=== PATIENT | male | born 1940 | race Caucasian/White ===

== ENCOUNTER → 2018-07-05 | Outpatient (CLI) | payer MEDICARE ==
[~2018-07-05] MED LIST: ADULT LOW DOSE81 MG PO; AMLODIPINE BESYL5 MG; ASPIRIN EC325 M1 PO; ASPIRIN325 PO; CALCIUM 600 +1 EAC1 PO; CARAFATE 1 GM TA1 GM PO; CARDIZEM LA240 M1 PO; CARTIA XT180 M1 PO; CARVEDILOL3.125 MG PO; CO Q-1010 MG PO; COLACE100 MG PO; COQ-10100 MG PO; CRESTOR20 MG PO; DAILY GARLIC O400 MG PO; FLAX OIL1000 MG PO; FLAX SEED OIL1000 MG PO; FLOMAX0.4 MG PO; FOLIC ACID 40400 MC1 PO; Flaxseed Oil PO; GARLIC OIL1 EAC1 PO; GARLIC OIL1 EACH PO; HYDROCHLOROTHIA25 M1 PO; K-DUR 20 MEQ T20 MEQ PO; NITROSTAT0.4 MG SL; OXYCODONE HCL 55 MG PO; PLAVIX 75 MG TA75 MG PO; POTASSIUM SUPPLEMENT PO; POTASSIUM20; PREDNISONE 20 M20 M1 PO; PROVENTIL HFA6.7 G1 INH; RANEXA1000 MG PO; SYMBICORT80 MCG/4.1 INH; TRIAMTERENE-HC1 EAC1 PO; VENTOLIN HFA INH8 GM IH; VITAMIN D1000 UNI1 PO; VITAMIN D35000 UNI1 PO; VITCB500GO PO; Vitamin C PO; XANAX 0.5 MG0.5 M1 PO; ZETIA10 MG PO; ZPAK PO
== END ==
LOC: M.RAD 12:36
DX: M75.101 Unspecified rotator cuff tear or rupture of right shoulder, not specified as traumatic (principal); M19.011 Primary osteoarthritis, right shoulder; I10 Essential (primary) hypertension; I25.10 Atherosclerotic heart disease of native coronary artery without angina pectoris; E78.5 Hyperlipidemia, unspecified; Z95.1 Presence of aortocoronary bypass graft

== ENCOUNTER → 2018-11-08 | Outpatient (CLI) | payer MEDICARE | LOC: M.ULTRA 10-30 07:33 → M.MRI 07:02 | DX: M47.26 Other spondylosis with radiculopathy, lumbar region (principal); M47.812 Spondylosis without myelopathy or radiculopathy, cervical region; M47.817 Spondylosis without myelopathy or radiculopathy, lumbosacral region; M51.16 Intervertebral disc disorders with radiculopathy, lumbar region; I73.9 Peripheral vascular disease, unspecified; M48.07 Spinal stenosis, lumbosacral region; M48.02 Spinal stenosis, cervical region; M43.13 Spondylolisthesis, cervicothoracic region; M50.23 Other cervical disc displacement, cervicothoracic region; I10 Essential (primary) hypertension; E78.2 Mixed hyperlipidemia; G62.9 Polyneuropathy, unspecified; G89.29 Other chronic pain; M25.511 Pain in right shoulder; M25.512 Pain in left shoulder; Z87.891 Personal history of nicotine dependence ==

== ENCOUNTER 2018-12-26 09:56 | Emergency (ER) | payer MEDICARE ==
[~2018-12-26] VITALS: Ht 172.7 cm; Wt 106.6 kg
[2018-12-26] MEDS ORDERED: EFFEXOR XR37.5 MG PO (10:07)
[2018-12-26 10:38] LABS: ABSOLUTE LYMPHOCYTES 1.3 thou/uL (0.8-5.3); ABSOLUTE MONOCYTES 0.9 thou/uL (0.0-1.2); ABSOLUTE NEUTROPHILS 8.2 thou/uL (1.6-8.1); BASOPHILS 0.4 %; EOSINOPHILS 0.3 %; HEMATOCRIT 45.8 % (42.0-52.0); HEMOGLOBIN 15.5 gm/dL (14.0-18.0); LYMPHOCYTES 12.1 %; MCH 30.7 pg (26.0-34.0); MCHC 33.9 g/dL (28.0-37.0); MCV 90.4 fL (80.0-100.0); MONOCYTES 8.6 %; MPV 9.2 fl. (7.2-11.1); NUCLEATED RBCS 0 /100WBC; PLATELET COUNT* 239 thou/uL (150-400); POLYS 78.6 %; RBC 5.06 mil/uL (4.50-6.00); RDW-CV 13.7 % (10.5-14.5); WBC 10.4 thou/uL (4.0-11.0)
[2018-12-26 10:49] LABS: ANION GAP 9 mmol/L (7-16); BUN 19 mg/dL (7-18); CALCIUM 8.9 mg/dL (8.5-10.1); CHLORIDE 102 mmol/L (98-107); CO2 26 mmol/L (21-32); CREATININE 1.2 mg/dL (0.6-1.3); GLUCOSE 114 mg/dL (70-99); POTASSIUM 3.7 mmol/L (3.5-5.1); SODIUM 137 mmol/L (136-145)
[2018-12-26 10:51] LABS: INR 1.1; PROTIME 11.2 Seconds (9.20-11.50)
[2018-12-26 10:56] LABS: ALBUMIN 3.5 g/dL (3.4-5.0); ALKALINE PHOSPHATASE 72 U/L (46-116); LIPASE 158 U/L (73-393); SGOT 25 U/L (15-37); SGPT 80 U/L (30-65); TOTAL BILIRUBIN 0.5 mg/dL (<0.1-1.0); TOTAL PROTEIN 6.9 g/dL (6.4-8.2); TROPONIN-I LEVEL <0.06 ng/mL (<0.06)
[2018-12-26] MEDS ORDERED: AMITRIPTYLINE H25 M2 PO (11:51)
[2018-12-26 12:09] VITALS: BP 148/70
--- NOTE | 2018-12-26 16:32 | EKG ---
[place] [address] ELECTROCARDIOGRAM REPORT Name: JARROD DONALD Room: [facility]#: [id number] Admission: 12/26/18 Attend Phys: Discharge: 12/26/18 Date of : 36 Report #: [id number] THIS REPORT FOR: //name// [facility] ED Test Date: 2018-12-26 Test Time: 10:00:41 Pat Name: JARROD DONALD Department: Room: Gender: M Vamp Throater: Dano NAVARRETE : 1940 Requested By: Indigo Hinton Order Number: [id number] MD: Kelby Kuo Measurements Intervals [place] Rate: 56 P: 25 AR: 202 QRS: -8 QRSD: 106 T: 84 QT: 415 QTc: 401 Interpretive Statements Sinus rhythm Early transition Atrial premature complex Compared to ECG 05/27/2016 07:42:17 Atrial premature complex(es) now present Electronically Signed On 12-26-2018 16:32:10 RN PEDIATRIC ICU by Kelby Kuo [email or web address] <ELECTRONICALLY SIGNED> By: Kelby Kuo MD, [facility] 12/26/18 1632 1000 1000 Kelby Kuo MD, FAC /EPI
== END 2018-12-26 12:15 | disposition home or self-care (01) ==
LOC: M.ERS 09:56
PROVIDERS: Personal Emergency Response Attendant
DX: G47.00 Insomnia, unspecified (principal); R07.89 Other chest pain; I25.10 Atherosclerotic heart disease of native coronary artery without angina pectoris; I10 Essential (primary) hypertension; F32.9 Major depressive disorder, single episode, unspecified; Z95.5 Presence of coronary angioplasty implant and graft; Z96.641 Presence of right artificial hip joint; Z95.1 Presence of aortocoronary bypass graft; Z88.8 Allergy status to other drugs, medicaments and biological substances; Z87.891 Personal history of nicotine dependence

== ENCOUNTER → 2019-02-27 | Outpatient (CLI) | payer MEDICARE ==
[~2019-02-27] MED LIST changes: +AMITRIPTYLINE H25 M2 PO; +EFFEXOR XR37.5 MG PO
== END ==
LOC: M.RAD 11:16
DX: M19.071 Primary osteoarthritis, right ankle and foot (principal); M19.072 Primary osteoarthritis, left ankle and foot; G89.29 Other chronic pain; Z88.8 Allergy status to other drugs, medicaments and biological substances

== ENCOUNTER → 2019-06-20 | Outpatient (CLI) | payer MEDICARE | LOC: M.RAD 16:32 | DX: I11.9 Hypertensive heart disease without heart failure (principal); I25.10 Atherosclerotic heart disease of native coronary artery without angina pectoris; I10 Essential (primary) hypertension; E78.2 Mixed hyperlipidemia; F33.1 Major depressive disorder, recurrent, moderate; Z88.8 Allergy status to other drugs, medicaments and biological substances; Z95.5 Presence of coronary angioplasty implant and graft ==

== ENCOUNTER → 2019-07-11 | Outpatient (CLI) | payer MEDICARE ==
[~2019-07-11] MED LIST changes: +CARTIA XT120 M1; -CARTIA XT180 M1 PO; +CLONAZEPAM 0.50.5 M1; +COQ-10100 MG; -COQ-10100 MG PO; +FOLIC ACID0.4 MG; +GINKGO BILOBA40 M1; +NEXIUM20 MG; +PANAX GINSENG; +WELLBUTRIN XL150 MG
== END ==
LOC: M.MRI 07-10 16:30
DX: M47.812 Spondylosis without myelopathy or radiculopathy, cervical region (principal); M48.02 Spinal stenosis, cervical region; I10 Essential (primary) hypertension; G62.9 Polyneuropathy, unspecified; E78.2 Mixed hyperlipidemia; F33.1 Major depressive disorder, recurrent, moderate

== ENCOUNTER 2019-07-17 10:37 | Inpatient (IN) | payer MEDICARE ==
[2019-07-17] VITALS (12 sets, daily range): BP systolic 118–145; BP diastolic 60–75
[~2019-07-17] VITALS: Ht 172.7 cm; Wt 104.8 kg
--- NOTE | ~2019-07-17 | H ---
[address] [address] HISTORY AND PHYSICAL Name: JARROD DONALD Room: [address]#: [id number] Admission: 07/17/19 Attend Phys: Kelby Kuo MD Discharge: 07/18/19 Date of : 36 Report #: [id number] THIS REPORT FOR: //name// Please refer to the History and Physical performed in the physician's office. By: 0815Medical Records Staff ALEXX /BALDEV
[~2019-07-17 10:37] MED LIST changes: -CARTIA XT120 M1; +CARTIA XT120 M1 PO; -CLONAZEPAM 0.50.5 M1; +CLONAZEPAM 0.50.5 M1 PO; -COQ-10100 MG; +COQ-10100 MG PO; -FOLIC ACID0.4 MG; +FOLIC ACID0.4 MG PO; -GINKGO BILOBA40 M1; +GINKGO BILOBA40 M1 PO; -NEXIUM20 MG; +NEXIUM20 MG PO; -WELLBUTRIN XL150 MG; +WELLBUTRIN XL150 MG PO
[2019-07-17 11:49] LABS: HEMATOCRIT 45.7 % (42.0-52.0); HEMOGLOBIN 15.3 gm/dL (14.0-18.0); MCH 30.8 pg (26.0-34.0); MCHC 33.5 g/dL (28.0-37.0); MPV 9.6 fl. (7.2-11.1); RBC 4.97 mil/uL (4.50-6.00); RDW-CV 13.9 % (10.5-14.5); WBC 6.5 thou/uL (4.0-11.0)
[2019-07-17 12:04] LABS: APTT 27.1 Seconds (25.0-31.3); INR 1.1; PROTIME 10.8 Seconds (9.20-11.50)
[2019-07-17 12:07] LABS: ANION GAP 8 mmol/L (7-16); BUN 22 mg/dL (7-18); CALCIUM 9.5 mg/dL (8.5-10.1); CHLORIDE 104 mmol/L (98-107); CO2 27 mmol/L (21-32); CREATININE 1.3 mg/dL (0.6-1.3); GLUCOSE 99 mg/dL (70-99); POTASSIUM 3.8 mmol/L (3.5-5.1); SODIUM 139 mmol/L (136-145)
[2019-07-17 12:12] LABS: ALBUMIN 3.6 g/dL (3.4-5.0); ALKALINE PHOSPHATASE 65 U/L (46-116); CHOLESTEROL 179 mg/dL (<200); HDL CHOLESTEROL 40 mg/dL (>40); LDL CHOLESTEROL 117 mg/dL (<100); SGOT 20 U/L (15-37); SGPT 23 U/L (30-65); TC:HDL 4.5 Ratio (Not establshd); TOTAL BILIRUBIN 0.5 mg/dL (<0.1-1.0); TRIGLYCERIDE 114 mg/dL (<150); VLDL 23 mg/dL (<40)
[2019-07-17 12:17] LABS: SERUM ASSESSMENT Clear
--- NOTE | 2019-07-17 16:24 | EKG ---
[place] [address] ELECTROCARDIOGRAM REPORT Name: JARROD DONALD Room: [address] ADM IN M.R.#: [id number] Admission: 07/17/19 Attend Phys: Kelby Kuo MD Discharge: Date of : 36 Report #: [id number] THIS REPORT FOR: //name// [facility] Test Date: 2019-07-17 Test Time: 11:36:04 Pat Name: JARROD DONALD Department: Room: [facility] Gender: M Sheet Folder: : 1940 Requested By: Kelby Kuo Order Number: [id number] Reading MD: Frank Gutiérrez Measurements Intervals [place] Rate: 54 P: 50 W[place]: 261 QRS: 20 QRSD: 111 T: 90 QT: 452 QTc: 429 Interpretive Statements Sinus rhythm Prolonged [place] interval Abnormal R-wave progression, early transition Compared to ECG 12/26/2018 10:00:41 First degree AV block now present Atrial premature complex(es) no longer present Electronically Signed On 07-17-2019 16:24:07 CDT by Frank Gutiérrez [email or web address] <ELECTRONICALLY SIGNED> By: Frank Gutiérrez MD, [facility] 07/17/19 1624 1136 1136 Frank Gutiérrez MD, [facility] /EPI
[2019-07-17] MEDS ORDERED: NEURONTIN 300300 M1 PO (21:18)
[2019-07-18 00:44] VITALS: BP 129/80
[2019-07-18 05:02] VITALS: BP 132/78
[2019-07-18 07:00] VITALS: BP 123/68
[2019-07-18 08:38] VITALS: BP 123/68
[2019-07-18] MEDS ORDERED: EFFIENT10 MG PO (08:57)
[2019-07-18] MEDS ORDERED: ASPIRIN325 PO (08:57)
--- NOTE | 2019-07-18 18:17 | EKG ---
[place] [address] ELECTROCARDIOGRAM REPORT Name: JARROD DONALD Room: [address] DIS IN M.R.#: [id number] Admission: 07/17/19 Attend Phys: Kelby Kuo MD Discharge: 07/18/19 Date of : 36 Report #: [id number] THIS REPORT FOR: //name// [facility] Test Date: 2019-07-18 Test Time: 08:10:29 Pat Name: JARROD DONALD Department: Room: [address] Gender: M Ad Trafficker: : 1940 Requested By: Kelby Kuo Order Number: [id number] Reading MD: Kelby Kuo Measurements Intervals [place] Rate: 67 P: 55 SD: 229 QRS: 19 QRSD: 118 T: 85 QT: 442 QTc: 467 Interpretive Statements Sinus rhythm Multiple ventricular premature complexes Prolonged [place] interval Probable left atrial enlargement Nonspecific intraventricular conduction delay Minimal ST elevation, inferior leads Compared to ECG 07/17/2019 11:36:04 Ventricular premature complex(es) now present Intraventricular conduction delay now present ST (T wave) deviation now present Electronically Signed On 07-18-2019 18:17:39 CDT by Kelby Kuo [email or web address] <ELECTRONICALLY SIGNED> By: Kelby Kuo MD, FACC 07/18/19 1817 9 9 Kelby Kuo MD, FAC /EPI
--- NOTE | 2019-07-20 17:08 | D ---
[address] [address] DISCHARGE SUMMARY Name: SHABANAAJRROD Dixon Room: [address]R.#: [id number] Admission: 07/17/19 Attend Phys: Kelby Kuo MD Discharge: 07/18/19 Date of : 38 Report #: [id number] THIS REPORT FOR: //name// CC: Luis Kuo DATE OF SERVICE: 07/18/2019 DISCHARGE DIAGNOSES: 1. Coronary artery disease. 2. Unstable angina. 3. Hypertension. 4. Dyslipidemia. 5. Peripheral neuropathy. PROCEDURES DURING THE HOSPITALIZATION: 1. Coronary angiography. 2. Left heart catheterization. 3. Percutaneous coronary intervention to the distal right coronary artery with 2 drug-eluting stents placed. HOSPITAL COURSE: The patient was brought to the cardiac catheterization lab for coronary angiography after a stress test showed evidence of inferolateral ischemia with preserved LV systolic function. The patient had been complaining of increasing fatigue, lower extremity weakness and dyspnea. He does have a history of previous coronary artery bypass grafting. He reports having four 5-vessel bypass surgeries remotely. His angiography prior to this hospitalization showed a remaining patent KC graft and patent saphenous vein graft to an obtuse marginal branch. On catheterization during this hospitalization, he was found to have critical stenosis of the distal right coronary artery that did not have a patent graft to. The patient underwent percutaneous coronary intervention with 2 drug-eluting stents placed to the distal right coronary artery without complication and good result. During an angiography, the patient was also noted to have significant proximal LAD disease, for which he will be returning to the hospital for a staged procedure. The KC graft went to a widely patent diagonal branch and the saphenous vein graft went to a widely patent obtuse marginal branch, both of which were totally occluded proximally. The remainder of his hospitalization was unremarkable. He is being discharged to home in stable condition. He will be on dual antiplatelet therapy consisting of aspirin 81 mg daily and Effient 10 mg daily. His discharge medications will therefore include Effient 10 mg daily, Maxzide 37.5/25 mg 1 daily, folate 1 mg daily, Zetia 10 mg daily, diltiazem CD 120 mg daily, bupropion 150 mg daily, aspirin 81 mg daily, Tylenol p.r.n., Nexium 40 mg daily, clonazepam 0.5 mg at bedtime, Colace 100 mg [place].i.[place] [address] DISCHARGE SUMMARY Name: JARROD DONALD Room: [address]#: [id number] Admission: 07/17/19 Attend Phys: Kelby Kuo MD Discharge: 07/18/19 Date of : 38 Report #: [id number] DISPOSITION: The patient will be contacted to follow up in the next 2-3 weeks for staged intervention. We will see the patient in the office in 2 months. <ELECTRONICALLY SIGNED> By: Kelby Kuo MD, FACC 07/20/19 1708 0905 0925Michael Pretty Kuo MD, FAC /nt
--- NOTE | 2019-07-21 12:02 | CARD ---
[address] [address] CARDIAC CATH REPORT Name: JARROD DONALD Room: [address]#: [id number] Admission: 07/17/19 Attend Phys: Kelby Kuo MD Discharge: 07/18/19 Date of : 38 Report #: [id number] THIS REPORT FOR: //name// APPROVED REPORT Study performed: 07/17/2019 11:35:25 Patient Details Patient Status: In-Patient Room #: The patient is a 79 year-old male Event Personnel Kelby Kuo Go Cart Mechanic, Graciela Roberts RN RN, Dhiraj Martinez AFTER SCHOOL TEACHER Monitor, Lokesh Baldwin AFTER SCHOOL TEACHER Scrub, Frank Gutiérrez Parts Remover, April Zacarias RTSaad Monitor Procedures Performed Art Access - R femoral artery* Left Heart Cath Coronaries, Bypass Grafts [id number] LHCCORCABG JUAN MIGUEL Place w/wo Plasty Single RCA 175777 Art Access - R femoral artery* Indication Dyspnea, Positive stress test Risk Factors Coronary Artery Disease Previous Procedures/Diagnoses Previous CABG Admission/Lab Medications/Medications given during procedure Midazolam (Versed) IV 2 mg, Fentanyl IV 50 mcg, Lidocaine Subcut 10 ml, Angiomax IV Bolus 16 ml, Angiomax IV gtt, Zofran (Ondansetron) IV 4 mg, Effient PO 60 mg, Aspirin PO 162 mg 37.1 ml/hr Procedure Narrative The patient was brought electively to the Cardiac Catheterization Laboratory and was prepped and draped in a sterile manner. The right femoral was infiltrated with 1% Lidocaine subcutaneous anesthesia. A 6Fr X 35cm Sheath sheath was inserted into the right femoral artery. Coronary angiography was performed using coronary diagnostic catheters. The right coronary system was accessed and visualized with a 6F JR4 catheter. The left coronary system was accessed and visualized with a 6F JL4 catheter. The [place] [address] CARDIAC CATH REPORT Name: JARROD DONALD Room: [address]#: [id number] Admission: 07/17/19 Attend Phys: Kelby Kuo MD Discharge: 07/18/19 Date of : 38 Report #: [id number] and visualized with a 6F JR4 catheter. The patient tolerated the procedure well and there were no complications associated with the procedure. Intraoperative Conscious Sedation Sedation start time: 11:57 Case end Time: 13:04 Fentanyl 50 mcg Versed 2 mg Fluoro Time: 16.4 minutes Dose: DAP 090293 cGycm2 3066 mGy Contrast Type and Amount: Omnipaque 210 ml Coronary Angiography The patient's coronary anatomy is right dominant. [place] Artery Percent Stenosis A KC graft to the second diagonal branch is widely patent with good distal anastomoses. A saphenous vein graft to the first obtuse marginal branch is widely patent with good distal anastomoses. Other saphenous vein grafts noted historically to be occluded. Diagnostic Cath Left Main Normal and bifurcates into the left descending and circumflex coronary arteries. LAD 80% calcified narrowing noted just after the takeoff of the first diagonal branch. Diagonal 1 Free of significant disease. Diagonal 2 Totally occluded at the ostium and filled by a KC graft. Circumflex Free of significant disease in the proximal mid and distal portion. OM1 Totally occluded at the takeoff. Filled by saphenous vein graft. OM2 Moderate branch vessel that is free of significant disease. Right Coronary Diffusely plaqued throughout with 20% narrowing proximally, 50% narrowing distally and tandem 70 and 80% narrowings distally. Vessels calcified. R PDA Free of significant disease. RPLV Free of significant disease. Left Ventriculography Left [place]entriculography [place] [address] CARDIAC CATH REPORT Name: SHABANAJARROD Zack Room: [address]#: [id number] Admission: 07/17/19 Attend Phys: Kelby Kuo MD Discharge: 07/18/19 Date of : 38 Report #: [id number] Hemodynamics The aortic pressure is 112/61 mmHg with a mean of 56 mmHg. The left ventricular pressure is 146/11 mmHg with a mean of mmHg. The left ventricular end diastolic pressure is 24 mmHg. PCI Technique Lesion Anticoagulation was achieved with Angiomax. Patient was preloaded with Angiomax IV 16 ml. Percutaneous coronary intervention was performed on the distal right coronary artery. The lesion stenosis prior to intervention was 75% with RONA 0 flow. A 6FR JL 4.0 Guide Catheter was used to engage the RCA ostium. A BMW 190cm Interventional Guidewire was used to cross the lesion. BALLOON DILATION A Balloon catheter Trek RX 2.25 X 12 was inserted and inflated up to 14atm for 6seconds. Additional Inflation: 17atm for 13seconds. Additional Inflation: 18atm for 16seconds. 2ND BALLOON: TREK RX 2.5 X 12MM. 12 LUIS, 10 SECONDS. 18 LUIS 9 SECONDS. 22 LUIS, 13 SECONDS. 3RD BALLOON: NC TREK RX 2.75 X 8MM. 17 LUIS, 16 SECONDS. STENT DEPLOYMENT A drug-eluting stent Sims RX Stent 2.22M02ix was inserted and inflated up to 12atm for 15seconds. Additional Inflation: 16atm for 15seconds. 2ND DRUG-ELUTING STENT: FLO RX STENT 2.75 X 8MM. 14 LUIS, 12 SECONDS. 17 LUIS, 11 SECONDS. 18 LUIS, 9 SECONDS. Final angiography reveals 10, 0 % stenosis with RONA 3 flow. Conclusion 1. Significant three-vessel coronary artery disease as outlined above. 2. Significant stenoses noted in the distal right coronary artery and mid left anterior descending coronary artery. 3. Moderately elevated left ventricular end-diastolic pressure. 4. Patent KC graft to the second diagonal branch. 5. Patent saphenous vein graft to the first obtuse marginal branch. 6. Successful percutaneous coronary intervention with deployment of sequential drug-eluting stents at the sites of tandem 70 and 80% distal right coronary stenosis with 10 and 0% residual narrowing following stent deployment and RONA-3 flow the distal vessel Recommendations Cardiac Risk Reduction Program [address] [address] CARDIAC CATH REPORT Name: JARROD DONALD [facility] [id number] Admission: 07/17/19 Attend Phys: Kelby Kuo MD Discharge: 07/18/19 Date of : 38 Report #: [id number] 1. Continue aggressive risk factor modification. 2. Percutaneous coronary intervention to the distal right coronary artery and mid left anterior descending coronary artery. Medications Administered Aspirin (any) Clopidogrel Diagnostic Cath Approved by: Kelby Kuo MD Date/Time: 07/21/2019 12:00:58 <ELECTRONICALLY SIGNED> By: Frank Gutiérrez MD, [facility] 07/21/19 1202 120 1202Frank Gutiérrez MD, [facility] /INF
== END 2019-07-18 11:52 | disposition home or self-care (01) | DRG 246 ==
LOC: M.CL 10:37 → M.TBA-CV 14:59 → M.2W 14:59
PROVIDERS: ADMIT Internal Medicine Cardiovascular Disease
DX: I25.110 Atherosclerotic heart disease of native coronary artery with unstable angina pectoris (principal); I50.33 Acute on chronic diastolic (congestive) heart failure; I11.0 Hypertensive heart disease with heart failure; G62.9 Polyneuropathy, unspecified; E78.2 Mixed hyperlipidemia; Z95.1 Presence of aortocoronary bypass graft; Z87.81 Personal history of (healed) traumatic fracture; Z87.891 Personal history of nicotine dependence; Z79.899 Other long term (current) drug therapy; Z88.8 Allergy status to other drugs, medicaments and biological substances; Z82.49 Family history of ischemic heart disease and other diseases of the circulatory system

== ENCOUNTER 2019-08-07 10:11 | Observation (INO) | payer MEDICARE ==
[2019-08-07] VITALS (15 sets, daily range): BP systolic 115–145; BP diastolic 68–84
[~2019-08-07] VITALS: Ht 175.3 cm; Wt 105.7 kg
--- NOTE | ~2019-08-07 | H ---
[address] [address] HISTORY AND PHYSICAL Name: JARROD DONALD Room: [address] Deloris Freeman#: [id number] Admission: 08/07/19 Attend Phys: Kelby Kuo MD Discharge: 08/08/19 Date of : 38 Report #: [id number] THIS REPORT FOR: //name// Please refer to the History and Physical performed in the physician's office. By: [facility]2Medical Records Staff ALEXX /BALDEV
[~2019-08-07 10:11] MED LIST changes: +EFFIENT10 MG PO; +NEURONTIN 300300 M1 PO; -PANAX GINSENG; +PANAX GINSENG PO
[2019-08-07] MEDS ORDERED: ASPIR 8181 MG PO (10:39)
[2019-08-07 11:22] LABS: HEMATOCRIT 44.9 % (42.0-52.0); HEMOGLOBIN 15.4 gm/dL (14.0-18.0); MCH 30.9 pg (26.0-34.0); MCHC 34.4 g/dL (28.0-37.0); MPV 9.2 fl. (7.2-11.1); RBC 4.99 mil/uL (4.50-6.00); WBC 6.8 thou/uL (4.0-11.0)
[2019-08-07 11:27] LABS: ANION GAP 9 mmol/L (7-16); BUN 15 mg/dL (7-18); CALCIUM 9.3 mg/dL (8.5-10.1); CHLORIDE 104 mmol/L (98-107); CO2 25 mmol/L (21-32); CREATININE 1.2 mg/dL (0.6-1.3); GLUCOSE 97 mg/dL (70-99); POTASSIUM 4.1 mmol/L (3.5-5.1); SODIUM 138 mmol/L (136-145)
[2019-08-07 11:29] LABS: APTT 27.5 Seconds (25.0-31.3); PROTIME 10.7 Seconds (9.20-11.50)
[2019-08-07 11:33] LABS: ALBUMIN 3.7 g/dL (3.4-5.0); ALKALINE PHOSPHATASE 70 U/L (46-116); CHOLESTEROL 170 mg/dL (<200); HDL CHOLESTEROL 38 mg/dL (>40); LDL CHOLESTEROL 105 mg/dL (<100); SGOT 16 U/L (15-37); SGPT 25 U/L (30-65); TC:HDL 4.5 Ratio (Not establshd); TOTAL BILIRUBIN 0.5 mg/dL (<0.1-1.0); TRIGLYCERIDE 136 mg/dL (<150); VLDL 27 mg/dL (<40)
[2019-08-07 11:59] LABS: SERUM ASSESSMENT Clear
[2019-08-07 14:56] LABS: CK-MB MASS 1.4 ng/mL (<0.5-3.6); TROPONIN-I LEVEL <0.06 ng/mL (<0.06)
--- NOTE | 2019-08-07 16:57 | EKG ---
[place] [address] ELECTROCARDIOGRAM REPORT Name: JARROD DONALD Room: [address] M.R.#: [id number] Admission: 08/07/19 Attend Phys: Kelby Kuo MD Discharge: Date of : 38 Report #: [id number] THIS REPORT FOR: //name// [facility] Test Date: 2019-08-07 Test Time: 11:37:35 Pat Name: JARROD DONALD Department: Room: [facility] Gender: M Credit Card Specialist: : 1940 Requested By: Kelby Kuo Order Number: [id number] Jay MD: Kelby Kuo Measurements Intervals [place] Rate: 55 P: 60 ID: 241 QRS: 11 QRSD: 107 T: 90 QT: 451 QTc: 432 Interpretive Statements Sinus rhythm Prolonged [place] interval Abnormal R-wave progression, early transition Compared to ECG 07/18/2019 08:10:29 Ventricular premature complex(es) no longer present Intraventricular conduction delay no longer present ST (T wave) deviation no longer present Electronically Signed On 08-07-2019 16:57:18 CDT by Kelby Kuo [email or web address] <ELECTRONICALLY SIGNED> By: Kelby Kuo MD, FACC 08/07/19 1657 1137 1137 Kelby Kuo MD, [facility] /EPI
--- NOTE | 2019-08-07 16:58 | EKG ---
[place] [address] ELECTROCARDIOGRAM REPORT Name: JARROD DONALD Room: [address] M.R.#: [id number] Admission: 08/07/19 Attend Phys: Kelby Kuo MD Discharge: Date of : 38 Report #: [id number] THIS REPORT FOR: //name// [facility] Test Date: 2019-08-07 Test Time: 14:25:01 Pat Name: JARROD DONALD Department: Room: [facility] Gender: M Subwarehouse Supervisor: : 1940 Requested By: Kelby Kuo Order Number: [id number] Reading MD: Kelby Kuo Measurements Intervals [place] Rate: 52 P: 47 [place]: 276 QRS: 12 QRSD: 109 T: 93 QT: 475 QTc: 442 Interpretive Statements Sinus rhythm Prolonged [place] interval Probable left atrial enlargement Abnormal R-wave progression, early transition Compared to ECG 07/18/2019 08:10:29 Ventricular premature complex(es) no longer present Intraventricular conduction delay no longer present ST (T wave) deviation no longer present Electronically Signed On 08-07-2019 16:57:51 CDT by Kelby Kuo [email or web address] <ELECTRONICALLY SIGNED> By: Kelby Kuo MD, FACC 08/07/19 1657 1425 1425 Kelby Kuo MD, FAC /EPI
--- NOTE | 2019-08-07 18:30 | NUR ---
ASSUMED PT CARE AT 1525 FROM AUDITING SPECIALIST AFTER STENT PLACEMENT IN LAD VIA RIGHT GROIN. GROIN INCISION AREA SOFT WITH NO S/S OF REDNESS OR IRRITATION. PT DENIES PAIN OR DISCOMFORT. POST CATH VITALS COMPLETED PER PROTOCOL. PT EDUCATED ET STATES UNDERSTANDING REGARDING REMAINING ON BACK FOR DESIGNATED TIME. PT STATED THIS WAS HIS 6TH STENT ET HE UNDERSTANDS. AT 1730 PT WAS ALLOWED TO GET UP FROM BED WITH ASSISTANCE OF THIS NURSE. PT DENIED ANY DISCOMFORT. INCISION SIGHT REMAINED INTACT WITH NO S/S OF IRRITATION. PT WAS UP IN CHAIR WITH DINNER. HOURLY ROUNDS COMPLETED ET DOCUMENTED. BS WITH PVC'S ON CARD MONITOR.
[2019-08-08] VITALS: BP 139/71
[2019-08-08 04:00] VITALS: BP 121/71
[2019-08-08 04:18] LABS: HEMATOCRIT 41.3 % (42.0-52.0); HEMOGLOBIN 13.9 gm/dL (14.0-18.0); MCH 30.4 pg (26.0-34.0); MCHC 33.6 g/dL (28.0-37.0); MCV 90.5 fL (80.0-100.0); MPV 8.9 fl. (7.2-11.1); RBC 4.57 mil/uL (4.50-6.00); RDW-CV 13.9 % (10.5-14.5); WBC 7.7 thou/uL (4.0-11.0)
--- NOTE | 2019-08-08 05:03 | NUR ---
PT SLEPT MOST OF SHIFT. ASSESSMENT DOCUMENTED. MEDS GIVEN PER E-JAN. IV PATENT. NO REPORTS OF PAIN. RIGHT GROIN SITE REMAINED C/D/I, NO SIGNS OF HEMATOMA. WILL CONTINUE WITH PLAN OF CARE.
[2019-08-08 05:07] LABS: ALBUMIN 3.2 g/dL (3.4-5.0); CALCIUM 8.8 mg/dL (8.5-10.1); CK-MB MASS 1.4 ng/mL (<0.5-3.6); CREATININE 1.2 mg/dL (0.6-1.3); POTASSIUM 3.9 mmol/L (3.5-5.1); TOTAL BILIRUBIN 0.6 mg/dL (<0.1-1.0); TROPONIN-I LEVEL 0.09 ng/mL (<0.06)
--- NOTE | 2019-08-08 07:20 | NUR ---
CHANGE OF SHIFT BEDSIDE REPORT GIVEN PATIENT SEEN AT BEDSIDE, IN BED RESTING ASSUMED PATIENT CARE
[2019-08-08 08:00] VITALS: BP 117/71
[2019-08-08 09:12] VITALS: BP 145/84
[2019-08-08 09:39] VITALS: BP 145/84
[2019-08-08 10:50] VITALS: BP 145/84
--- NOTE | 2019-08-08 11:19 | EKG ---
[place] [address] ELECTROCARDIOGRAM REPORT Name: JARROD DONALD Room: [address] M.R.#: [id number] Admission: 08/07/19 Attend Phys: Kelby Kuo MD Discharge: Date of : 38 Report #: [id number] THIS REPORT FOR: //name// [facility] Test Date: 2019-08-08 Test Time: 03:58:49 Pat Name: JARROD DONALD Department: Room: [facility] Gender: M Postbed Stitcher: J[place] : 1940 Requested By: Kelby Kuo Order Number: [id number] Jay MD: Luis Vasquez Measurements Intervals [place] Rate: 68 P: 65 NV: 238 QRS: 19 QRSD: 113 T: 85 QT: 423 QTc: 450 Interpretive Statements Sinus rhythm premature complexes, vent Prolonged [place] interval Incomplete right bundle branch block Compared to ECG 08/07/2019 14:25:01 pvc now present Electronically Signed On 08-08-2019 11:19:42 CDT by Luis Vasquez [email or web address] <ELECTRONICALLY SIGNED> By: uLis Vasquez MD, [facility] 08/08/19 1119 0358 0358 Luis Vasquez MD, [facility] /EPI
--- NOTE | 2019-08-08 11:40 | NUR ---
DISCHARGE TO HOME ALL DISCHARGE INSTRUCTIONS GIVEN, ACKNOWLEDGED, SIGNED COPIES GIVEN IV AND HEART MONITOR REMOVED PERSONAL BELONGINGS RETURNED ASSISTED OUT VIA WC TO WAITING CAR
--- NOTE | 2019-08-09 09:12 | D ---
[address] [address] DISCHARGE SUMMARY Name: JARROD DONALD Room: [address] Deloris Freeman#: [id number] Admission: 08/07/19 Attend Phys: Kelby Kuo MD Discharge: 08/08/19 Date of : 38 Report #: [id number] THIS REPORT FOR: //name// CC: Luis Kuo DISCHARGE DIAGNOSES: 1. Coronary artery disease with progressive/unstable angina. 2. Hypertension. 3. Mixed hyperlipidemia. 4. Peripheral neuropathy. PROCEDURES DURING THE HOSPITALIZATION: Percutaneous coronary intervention with drug-eluting stent placement to the proximal LAD. HOSPITAL COURSE: The patient was admitted electively through the cardiac catheterization lab for scheduled/staged intervention to the proximal left anterior descending coronary artery. The patient had a 3.0 x 18 mm drug-eluting stent placed to the proximal to mid left anterior descending coronary artery without complication. The patient tolerated the procedure well without complication. He was observed overnight and discharged home uneventfully. DISCHARGE MEDICATIONS: 1. Aspirin 325 mg daily. 2. Effient 10 mg daily. 3. Wellbutrin XL 150 mg daily. 4. Klonopin 0.5 mg daily as needed. 5. CoQ10 200 mg daily. 6. Diltiazem 120 mg daily. 7. Colace 100 mg. 8. Nexium 20 mg q.a.m. 9. Zetia 10 mg daily. 10. Folate 400 mcg daily. 11. Gabapentin 600 mg 3 times daily. 12. Maxzide 25 one tablet daily. He takes number of supplements as well. DISPOSITION: The patient has been asked to follow up with Cardiology office in 2-3 months following stent placement. <ELECTRONICALLY SIGNED> By: Kelby Kuo MD, FACC 08/09/19911 8 0938Micfredy Kuo MD, FACC /nt
--- NOTE | 2019-08-13 16:34 | CARD ---
[address] [address] CARDIAC CATH REPORT Name: JARROD DONALD Room: [address] Deloris Freeman#: [id number] Admission: 08/07/19 Attend Phys: Kelby Kuo MD Discharge: 08/08/19 Date of : 36 Report #: [id number] THIS REPORT FOR: //name// APPROVED REPORT Study performed: 08/07/2019 11:32:30 Patient Details The patient is a 79 year-old male Event Personnel Kelby Kuo Clinical Esthetician, Frank Gutiérrez Inspector Automatic Typewriter, Graciela Roberts RN Petal Shaper Hand, April Zacarias RTR Scrub, Katie Maria RN Monitor, Sarahy Bojorquez RTR Monitor Procedures Performed Art Access - R femoral artery* Atherectomy w/wo Plasty Sgl LAD [id number] ATHSINGLE JUAN MIGUEL Place w/wo Plasty Single LAD [id number] Hemostasis w/ Angioseal Indication Unstable angina Risk Factors Hypercholesterolemia, Hypertension Previous Procedures/Diagnoses Previous PCI Admission/Lab Medications/Medications given during procedure Angiomax bolus and infusion Procedure Narrative The patient was brought electively to the Cardiac Catheterization Laboratory and was prepped and draped in a sterile manner. The right femoral was infiltrated with 2% Lidocaine subcutaneous anesthesia. A 6fr Ultimum Sheath sheath was inserted into the right femoral artery. Coronary angiography was performed using coronary diagnostic catheters. The left coronary system was accessed and visualized with a 6FR LAUNCHER EBU 3.5 catheter. Closure device was deployed with a Fr Angioseal STS 6Fr. The patient tolerated the procedure well and there were no complications associated with the procedure. Intraoperative Conscious Sedation Sedation start time: 1158 Case end Time: [place] [address] CARDIAC CATH REPORT Name: JARROD DONALD [address] [id number] Admission: 08/07/19 Attend Phys: Kelby Kuo MD Discharge: 08/08/19 Date of : 36 Report #: [id number] 1305 Fentanyl 100 mcg Versed 3 mg Fluoro Time: 23.2 minutes Dose: DAP 367157 cGycm2 2251 mGy Contrast Type and Amount: Visipaque 235 ml Diagnostic Cath Left Main 0% narrowing LAD 90% calcified proximalmid vessel stenosis Circumflex Nondominant vessel with 50% narrowing Left Ventriculography Left Ventriculography was not performed. PCI Technique Lesion Anticoagulation was achieved with Angiomax Drip. Patient was preloaded with Angiomax IV 16 ml. Percutaneous coronary intervention was performed on the proximal/mid left anterior descending artery segment. The lesion stenosis prior to intervention was 90% with RONA 3 flow. A 6FR LAUNCHER EBU 3.5 Guide Catheter was used to engage the left ostium. A IG: BMW 190cm Interventional Guidewire was used to cross the lesion. BALLOON DILATION A Balloon catheter Trek RX 2.5 X 12 was inserted and inflated up to 12.00atm for 14seconds. Additional Inflation: 18.00atm for 30seconds. Angiosculpt PTCA 3.0 X 10mm inserted/ inflated to 10 yeni/ 15 sec and 14 yeni/ 20 sec STENT DEPLOYMENT A drug-eluting stent biotronik Orsiro 3.0 x 18 was inserted and inflated up to 12.00atm for 24seconds. Additional Inflation: 14.00atm for 19seconds. Final angiography reveals 0 % stenosis with RONA 3 flow. Conclusion #1 significant left anterior descending coronary artery disease with 90% calcified proximalmid vessel stenosis #2 successful atherotomy/atherectomy with deployment of a drug-eluting stent in the proximalmid LAD with 0% residual narrowing and RNOA-3 flow [place] [address] CARDIAC CATH REPORT Name: JARROD DONALD [address] [id number] Admission: 08/07/19 Attend Phys: Kelby Kuo MD Discharge: 08/08/19 Date of : 36 Report #: [id number] Recommendations Cardiac Risk Reduction Program Aggressive Medical Therapy Medications Administered Aspirin (any) Prasugrel Diagnostic Cath Approved by: Kelby Kuo MD Date/Time: 08/13/2019 16:31:10 <ELECTRONICALLY SIGNED> By: Frank Gutiérrez MD, [facility] 08/13/19 1633 1633 1633Frank Gutiérrez MD, [facility] /INF
== END 2019-08-08 11:45 | disposition home or self-care (01) ==
LOC: M.CL 10:11 → M.TBA-CV 13:15 → M.2W 15:24
PROVIDERS: ADMIT Internal Medicine Cardiovascular Disease
DX: I25.10 Atherosclerotic heart disease of native coronary artery without angina pectoris (principal); E78.00 Pure hypercholesterolemia, unspecified; I10 Essential (primary) hypertension; E78.2 Mixed hyperlipidemia; G62.9 Polyneuropathy, unspecified; Z79.82 Long term (current) use of aspirin; Z79.899 Other long term (current) drug therapy

== ENCOUNTER 2019-08-30 19:21 | Observation (INO) | payer MEDICARE ==
[~2019-08-30] VITALS: Ht 172.7 cm; Wt 102.1 kg
[~2019-08-30 19:21] MED LIST changes: +ASPIR 8181 MG PO
[2019-08-30 19:29] VITALS: BP 136/67
[2019-08-30 19:38] LABS: ABSOLUTE EOSINOPHILS 0.1 thou/uL (0.0-0.7); ABSOLUTE LYMPHOCYTES 1.4 thou/uL (0.8-5.3); ABSOLUTE MONOCYTES 0.9 thou/uL (0.0-1.2); ABSOLUTE NEUTROPHILS 6.1 thou/uL (1.6-8.1); BASOPHILS 0.5 %; EOSINOPHILS 1.7 %; HEMOGLOBIN 15.2 gm/dL (14.0-18.0); LYMPHOCYTES 16.4 %; MCH 31.1 pg (26.0-34.0); MCHC 34.5 g/dL (28.0-37.0); MCV 90.1 fL (80.0-100.0); MONOCYTES 10.4 %; MPV 8.6 fl. (7.2-11.1); NUCLEATED RBCS 0 /100WBC; PLATELET COUNT* 261 thou/uL (150-400); RBC 4.88 mil/uL (4.50-6.00); WBC 8.7 thou/uL (4.0-11.0)
[2019-08-30 19:46] LABS: CALCIUM 9.5 mg/dL (8.5-10.1); CREATININE 1.4 mg/dL (0.6-1.3); INR 1.1; POTASSIUM 3.6 mmol/L (3.5-5.1); PROTIME 10.9 Seconds (9.20-11.50)
[2019-08-30 19:57] LABS: ALBUMIN 3.6 g/dL (3.4-5.0); TOTAL BILIRUBIN 0.5 mg/dL (<0.1-1.0)
--- NOTE | 2019-08-30 19:57 | NUR ---
1952 I SUBLINGUAL NITRO GIVEN ORDRED. 1955 PT STATED WAS PAIN FREE.
[2019-08-30 21:00] VITALS: BP 136/67
[2019-08-31] VITALS: BP 139/72
[2019-08-31 04:00] VITALS: BP 141/75
[2019-08-31 07:00] VITALS: BP 126/69
[2019-08-31 08:45] LABS: HEMATOCRIT 42.2 % (42.0-52.0); HEMOGLOBIN 14.4 gm/dL (14.0-18.0); MCH 30.9 pg (26.0-34.0); MCV 90.9 fL (80.0-100.0); MPV 8.6 fl. (7.2-11.1); RBC 4.64 mil/uL (4.50-6.00); WBC 7.1 thou/uL (4.0-11.0)
[2019-08-31 08:49] LABS: CALCIUM 9.5 mg/dL (8.5-10.1); CREATININE 1.4 mg/dL (0.6-1.3); POTASSIUM 3.5 mmol/L (3.5-5.1)
[2019-08-31] MEDS ORDERED: NITROGLYCERIN0.4 MG SUBLING (11:55)
[2019-08-31] MEDS ORDERED: IMDUR 30 MG TAB30 M1 PO (11:55)
[2019-08-31 12:06] VITALS: BP 113/57
--- NOTE | 2019-08-31 12:33 | EKG ---
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1940 Requested By: Galo Oneill Order Number: [id number] MD: Miguel Ching Measurements Intervals [place] Rate: 55 P: 68 [place]: 217 QRS: 31 QRSD: 109 T: 78 QT: 429 QTc: 411 Interpretive Statements Sinus rhythm Borderline prolonged [place] interval Probable left atrial enlargement RSR' in V1 or V2, right VCD or RVH Baseline wander in lead(s) I,III,aVL,V2 Compared to ECG 08/08/2019 03:58:49 Right ventricular hypertrophy now present RSR' in V1 or V2 now present Incomplete right bundle-branch block no longer present Electronically Signed On 08-31-2019 12:33:45 CDT by Miguel Ching [email or web address] <ELECTRONICALLY SIGNED> By: Svitlana Ching MD, FACKyle 08/31/19 1233 25 25 Svitlana Ching MD, [facility] /EPI
[2019-08-31] MEDS ORDERED: ACETAMINOPHEN325 M1 PO (12:43)
[2019-08-31 12:45] VITALS: BP 113/57
--- NOTE | 2019-08-31 13:30 | 2DMMODE ---
[place] [address] 2 D/M-MODE ECHOCARDIOGRAM Name: JARROD DONALD Room: [address] Deloris Freeman#: [id number] Admission: 08/30/19 Attend Phys: Man Acharya Discharge: Date of : 36 Date of Service: 08/31/19 1330 Report #: [id number] THIS REPORT FOR: //name// APPROVED REPORT Study performed: 08/31/2019 12:19:55 EXAM: Comprehensive 2D, Doppler, and color-flow Echocardiogram Patient Location: In-Patient Room #: [facility] Status: routine BSA: 2.15 HR: 60 bpm BP: 126/69 mmHg Rhythm: NSR Other Information Study Quality: Good Indications CAD Chest Pain 2D Dimensions IVSd: 12.24 (7-11mm) LVOT Diam: 21.06 (18-24mm) LVDd: 37.72 mm PWd: 11.79 (7-11mm) Ascending Ao: 38.78 (22-36mm) LVDs: 29.31 (25-40mm) Aortic Root: 41.36 mm Volumes Left Atrial Volume (Systole) LA ESV Index: 35.40 mL/m2 Aortic Valve AoV Peak Wilberto.: 1.62 m/s AO Peak Gr.: 10.53 mmHg LVOT Max P.65 mmHg AO Mean Gr.: 5.70 mmHg LVOT Mean P.45 mmHg LVOT Max V: 1.08 m/s AO V2 VTI: 30.39 cm LVOT Mean V: 0.73 m/s REMIGIO (VTI): 2.87 cm2 LVOT V1 VTI: 25.03 cm Mitral Valve MV Mean Gr.: 2.76 mmHg E/A Ratio: 0.58 MV Decel. Time: 642.25 [place] [address] 2 D/M-MODE ECHOCARDIOGRAM Name: JARROD DONALD Room: [address] MVictorinoRVictorino#: [id number] Admission: 08/30/19 Attend Phys: Man Acharya Discharge: Date of : 36 Date of Service: 08/31/19 1330 Report #: [id number] MV E Max Wilberto.: 0.73 m/s MV PHT: 186.25 ms MVA (PHT): 1.18 cm2 TDI E/Lateral E': 9.13 E/Medial E': 12.17 Medial E' Wilberto.: 0.06 m/s Lateral E' Wilberto.: 0.08 m/s Pulmonary Valve PV Peak Wilberto.: 0.71 m/s PV Peak Gr.: 1.99 mmHg Tricuspid Valve RAP Estimate: 5.00 mmHg TR Peak Gr.: 13.27 mmHg RVSP: 18.00 mmHg PA Pressure: 18.00 mmHg Left Ventricle The left ventricle is normal size. There is normal LV segmental wall motion. Mild concentric left ventricular hypertrophy. Left ventricular systolic function is normal. LVEF is 55-60%. Grade I - abnormal relaxation pattern. Right Ventricle The right ventricle is normal size. The right ventricular systolic function is normal. Atria Left atrium is mildly dilated. The right atrium size is normal. Aortic Valve Aortic valve leaflets are moderately thickened. No aortic regurgitation is present. There is no aortic valvular stenosis. Mitral Valve Moderate mitral annular calcification. There is no mitral valve regurgitation noted. Moderate mitral stenosis. Tricuspid Valve The tricuspid valve is normal in structure. Trace tricuspid regurgitation. Pulmonic Valve The pulmonary valve is normal in structure. [place] [address] 2 D/M-MODE ECHOCARDIOGRAM Name: JARROD DONALD Room: [address]#: [id number] Admission: 08/30/19 Attend Phys: Man Acharya Discharge: Date of : 36 Date of Service: 08/31/19 1330 Report #: [id number] regurgitation. Great Vessels The aortic root is normal in size. IVC is normal in size and collapses >50% with inspiration. Pericardium There is no pericardial effusion. <Conclusion> The left ventricle is normal size. Mild concentric left ventricular hypertrophy. Left ventricular systolic function is normal. LVEF is 55-60%. Grade I - abnormal relaxation pattern. Left atrium is mildly dilated. Aortic valve leaflets are moderately thickened. There is no aortic valvular stenosis. Moderate mitral annular calcification. Moderate mitral stenosis. Trace tricuspid regurgitation. Trace pulmonic regurgitation. IVC is normal in size and collapses >50% with inspiration. <ELECTRONICALLY SIGNED> By: Kelby Kuo MD, FACC 08/31/19 1330 29 29 Kelby Kuo MD, FACC /INF
--- NOTE | 2019-09-01 14:37 | CON ---
[address] [address] CONSULTATION Name: JARROD DONALD Room: [address] Deloris Freeman#: [id number] Admission: 08/30/19 Attend Phys: Leonila Zazueta Discharge: 08/31/19 Date of : 36 Report #: [id number] THIS REPORT FOR: //name// CC: Luis Acharya DATE OF SERVICE: 08/31/2019 CARDIOLOGY CONSULTATION INDICATION: Chest pain. HISTORY OF PRESENT ILLNESS: The patient is an 79-year-old gentleman well known to myself. He has a history of coronary artery disease with remote coronary artery bypass grafting. Recent catheterization showed a patent KC graft to a diagonal and patent saphenous vein graft to an obtuse marginal branch. He underwent percutaneous coronary intervention with drug-eluting stent placed to the distal right coronary artery. Approximately a month later, he had a drug-eluting stent placed to the proximal left anterior descending coronary artery. He does have some residual apical LAD disease that was not felt to be in need of intervention. The patient was admitted with several days' worth of progressive chest discomfort and generalized aches and pains. He took some cold, flu medication without significant relief of his symptoms. The patient presented to the Emergency Room last night. Sublingual nitroglycerin did alleviate his discomfort. EKG showed sinus rhythm without significant ST or T-wave abnormality. Cardiac enzymes have been unremarkable. Presently, he is without chest pain, tightness or pressure. He denies any significant shortness of breath. CARDIAC RISK FACTORS: Include hyperlipidemia and hypertension. PAST MEDICAL HISTORY: 1. Coronary artery disease with remote coronary artery bypass grafting as outlined above. 2. Hypertension. 3. Hyperlipidemia. 4. Peripheral neuropathy. PAST SURGICAL HISTORY: 1. Coronary artery bypass grafting in 2005. 2[place] [address] CONSULTATION Name: JARROD DONALD [address] [id number] Admission: 08/30/19 Attend Phys: Leonila Zazueta Discharge: 08/31/19 Date of : 36 Report #: [id number] 3. Nasal fracture surgery. 4. Septoplasty. 5. Tonsillectomy. 6. Total hip arthroplasty. CURRENT MEDICATIONS: 1. Aspirin one tablet daily. 2. Effient 10 mg daily. 3. Wellbutrin 150 mg daily. 4. CoQ10 200 mg daily. 5. Diltiazem 120 mg daily. FAMILY HISTORY: The patient's mother at 92 with heart failure. The patient's father of heart failure at 65. SOCIAL HISTORY: The patient quit smoking in 1966. He does not drink alcohol. PHYSICAL EXAMINATION: VITAL SIGNS: Stable. Blood pressure 126/69, pulse is 60 and regular. GENERAL: This is a pleasant gentleman in no distress. Mood and affect appropriate. HEENT: Extraocular muscles intact. The patient is wearing glasses. Mucous membranes moist. NECK: Shows no jugular venous distention. CHEST: Clear to auscultation. CARDIOVASCULAR: Reveals a regular rhythm without gallop or murmur. ABDOMEN: Reveals a protuberant abdomen, soft and nontender. Bowel sounds present. EXTREMITIES: Show no edema. Peripheral pulses 2+ and easily palpable. LABORATORY DATA: Troponin less than 0.06 on 3 separate occasions. IMPRESSION AND RECOMMENDATIONS: 1. Chest pain. Possibly represents angina, although he did rule out for myocardial infarction and his EKG appears stable. He had recent intervention to the LAD and right coronary artery. I would continue dual antiplatelet therapy. I have asked him to start isosorbide mononitrate 30 mg daily. We will obtain echocardiogram to evaluate underlying cardiac function. 2. Coronary artery disease with recent percutaneous coronary intervention. The patient is on dual antiplatelet therapy in the form of aspirin and Effient. I would continue as outlined above. 3. Hypertension. Blood pressure adequately controlled on current regimen. 4. Hyperlipidemia. The patient is intolerant of statin agents. He is on Zetia, would continue that. 5. Peripheral neuropathy[place] [address] CONSULTATION Name: JARROD DONALD Room: [address] Deloris Freeman#: [id number] Admission: 08/30/19 Attend Phys: Leonila Zazueta Discharge: 08/31/19 Date of : 36 Report #: [id number] At this point in time, the patient appears stable from a cardiac standpoint. If his echocardiogram appears unremarkable and he remains stable, I believe he would be appropriate for discharge to home. <ELECTRONICALLY SIGNED> By: Kelby Kuo MD, FACC 09/01/19 1437 0848 0922[facility] care centertyler Kuo MD, FACC /nt
== END 2019-08-31 15:01 | disposition home or self-care (01) ==
LOC: M.ERS 19:21 → M.2W 20:18 → M.TBA-ER 20:18 → M.2W 21:16
PROVIDERS: Emergency Medicine; Internal Medicine; ADMIT Internal Medicine
DX: I25.119 Atherosclerotic heart disease of native coronary artery with unspecified angina pectoris (principal); I10 Essential (primary) hypertension; E78.5 Hyperlipidemia, unspecified; F41.9 Anxiety disorder, unspecified; G47.00 Insomnia, unspecified; Z87.891 Personal history of nicotine dependence; Z95.5 Presence of coronary angioplasty implant and graft; Z79.82 Long term (current) use of aspirin; Z79.899 Other long term (current) drug therapy; Z23 Encounter for immunization

== ENCOUNTER → 2019-09-03 | Outpatient (CLI) | payer MEDICARE ==
[~2019-09-03] MED LIST changes: +ACETAMINOPHEN325 M1 PO; +IMDUR 30 MG TAB30 M1 PO; +NITROGLYCERIN0.4 MG SUBLING
[2019-09-04 04:08] LABS: T3 UPTAKE 31 % (24-39)
== END ==
LOC: M.LAB 13:42
PROVIDERS: Internal Medicine
DX: I10 Essential (primary) hypertension (principal); R73.09 Other abnormal glucose; R53.83 Other fatigue; G62.9 Polyneuropathy, unspecified; E78.2 Mixed hyperlipidemia

== ENCOUNTER → 2019-11-02 | Outpatient (CLI) | payer MEDICARE | LOC: M.RAD 10:49 → M.MRI 11:30 | DX: M51.17 Intervertebral disc disorders with radiculopathy, lumbosacral region (principal); M47.816 Spondylosis without myelopathy or radiculopathy, lumbar region; I10 Essential (primary) hypertension; I25.10 Atherosclerotic heart disease of native coronary artery without angina pectoris; G62.9 Polyneuropathy, unspecified; E78.2 Mixed hyperlipidemia; M51.25 Other intervertebral disc displacement, thoracolumbar region; M48.061 Spinal stenosis, lumbar region without neurogenic claudication; M25.551 Pain in right hip; Z96.641 Presence of right artificial hip joint; Z96.642 Presence of left artificial hip joint ==

== ENCOUNTER 2020-03-26 03:01 | Emergency (ER) | payer MEDICARE ==
[~2020-03-26] VITALS: Ht 172.7 cm; Wt 99.8 kg
[2020-03-26] MEDS ORDERED: AMITRIPTYLINE (03:17)
[2020-03-26 03:28] LABS: HEMOGLOBIN 15.1 gm/dL (14.0-18.0)
[2020-03-26 03:30] LABS: ABSOLUTE EOSINOPHILS 0.2 thou/uL (0.0-0.7); ABSOLUTE LYMPHOCYTES 1.5 thou/uL (0.8-5.3); ABSOLUTE NEUTROPHILS 5.2 thou/uL (1.6-8.1); BASOPHILS 0.5 %; EOSINOPHILS 2.7 %; HEMATOCRIT 42.8 % (42.0-52.0); LYMPHOCYTES 19.2 %; MCH 31.5 pg (26.0-34.0); MCHC 35.2 g/dL (28.0-37.0); MCV 89.2 fL (80.0-100.0); MONOCYTES 13.1 %; MPV 8.2 fl. (7.2-11.1); NUCLEATED RBCS 0 /100WBC; PLATELET COUNT* 254 thou/uL (150-400); POLYS 64.5 %; RDW-CV 13.5 % (10.5-14.5)
[2020-03-26 03:44] LABS: URINE BILIRUBIN NEGATIVE (Negative); URINE BLOOD NEGATIVE (Negative); URINE CLARITY CLEAR; URINE COLOR YELLOW; URINE GLUCOSE-RANDOM NEGATIVE (Negative); URINE KETONES NEGATIVE (Negative); URINE LEUKOCYTES-REFLEX NEGATIVE (Negative); URINE NITRITE-REFLEX NEGATIVE (Negative); URINE PROTEIN NEGATIVE (Negative); URINE SPECIFIC GRAVITY 1.015 (1.005-1.030); URINE UROBILINOGEN 0.2 E.U./dl (0.2-1.0)
[2020-03-26 03:46] LABS: CALCIUM 8.7 mg/dL (8.5-10.1); CREATININE 1.4 mg/dL (0.6-1.3); POTASSIUM 3.5 mmol/L (3.5-5.1); PROTIME 10.4 Seconds (9.20-11.50)
[2020-03-26 03:57] LABS: ALBUMIN 3.5 g/dL (3.4-5.0); TOTAL BILIRUBIN 0.4 mg/dL (<0.1-1.0); TOTAL PROTEIN 6.8 g/dL (6.4-8.2)
[2020-03-26 05:34] VITALS: BP 133/87
--- NOTE | 2020-03-26 16:36 | EKG ---
[place] [address] ELECTROCARDIOGRAM REPORT Name: JARROD DONALD Room: [facility]#: [id number] Admission: 03/26/20 Attend Phys: Discharge: 03/26/20 Date of : 36 Date of Service: 03/26/20 0303 Report #: [id number] THIS REPORT FOR: //name// 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1940 Requested By: Alyx Lubin Order Number: [id number] MD: Kelby Kuo Measurements Intervals [place] Rate: 79 P: 83 [place]: 235 QRS: 58 QRSD: 108 T: 82 QT: 393 QTc: 451 Interpretive Statements Sinus rhythm Prolonged [place] interval Abnormal R-wave progression, early transition Compared to ECG 08/30/2019 19:26:19 Right ventricular hypertrophy no longer present Electronically Signed On 03-26-2020 16:34:55 CDT by Kelby Kuo [email or web address] <ELECTRONICALLY SIGNED> By: Kelby Kuo MD, FAC 03/26/20 1634 0303 Kelby Kuo MD, [facility] /EPI
== END 2020-03-26 05:34 | disposition home or self-care (01) ==
LOC: M.ERS 03:01
PROVIDERS: Emergency Medicine
DX: R20.2 Paresthesia of skin (principal); I10 Essential (primary) hypertension; E78.5 Hyperlipidemia, unspecified; Z95.5 Presence of coronary angioplasty implant and graft; G62.9 Polyneuropathy, unspecified; Z87.891 Personal history of nicotine dependence; Z88.8 Allergy status to other drugs, medicaments and biological substances; Z95.1 Presence of aortocoronary bypass graft; Z90.89 Acquired absence of other organs

== ENCOUNTER 2020-04-18 05:59 | Emergency (ER) | payer MEDICARE ==
[~2020-04-18] VITALS: Ht 162.6 cm; Wt 104.3 kg
[~2020-04-18 05:59] MED LIST changes: +AMITRIPTYLINE
[2020-04-18 06:34] LABS: ABSOLUTE EOSINOPHILS 0.1 thou/uL (0.0-0.7); ABSOLUTE LYMPHOCYTES 1.1 thou/uL (0.8-5.3); ABSOLUTE MONOCYTES 0.8 thou/uL (0.0-1.2); ABSOLUTE NEUTROPHILS 5.1 thou/uL (1.6-8.1); BASOPHILS 0.4 %; EOSINOPHILS 1.4 %; HEMATOCRIT 44.1 % (42.0-52.0); HEMOGLOBIN 15.1 gm/dL (14.0-18.0); LYMPHOCYTES 15.7 %; MCH 31.1 pg (26.0-34.0); MCHC 34.3 g/dL (28.0-37.0); MCV 90.9 fL (80.0-100.0); MONOCYTES 10.8 %; MPV 8.8 fl. (7.2-11.1); NUCLEATED RBCS 0 /100WBC; PLATELET COUNT* 234 thou/uL (150-400); POLYS 71.7 %; RBC 4.86 mil/uL (4.50-6.00); RDW-CV 13.8 % (10.5-14.5); WBC 7.1 thou/uL (4.0-11.0)
[2020-04-18 06:49] LABS: CREATININE 1.5 mg/dL (0.6-1.3); POTASSIUM 3.8 mmol/L (3.5-5.1)
[2020-04-18 06:52] LABS: ALBUMIN 3.6 g/dL (3.4-5.0); MAGNESIUM 2.1 mg/dL (1.8-2.4); TOTAL BILIRUBIN 0.5 mg/dL (<0.1-1.0); TOTAL PROTEIN 7.2 g/dL (6.4-8.2)
[2020-04-18 09:46] VITALS: BP 172/98
--- NOTE | 2020-04-18 10:35 | EKG ---
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1940 Requested By: Ryan Escobar Order Number: [id number] MD: Luis Vasquez Measurements Intervals [place] Rate: 57 P: 66 [place]: 226 QRS: 15 QRSD: 105 T: 104 QT: 442 QTc: 431 Interpretive Statements Sinus rhythm Prolonged [place] interval Abnormal R-wave progression, early transition Borderline repolarization abnormality Compared to ECG 03/26/2020 03:03:32 No significant changes Electronically Signed On 04-18-2020 10:33:11 CDT by Luis Vasquez [email or web address] <ELECTRONICALLY SIGNED> By: Luis Vasquez MD, [facility] 04/18/20 1033 1 1 Luis Vasquez MD, [facility] /EPI
== END 2020-04-18 09:47 | disposition home or self-care (01) ==
LOC: M.ERS 05:59
PROVIDERS: Emergency Medicine Emergency Medical Services
DX: R07.89 Other chest pain (principal); I25.10 Atherosclerotic heart disease of native coronary artery without angina pectoris; I10 Essential (primary) hypertension; E78.5 Hyperlipidemia, unspecified; F41.9 Anxiety disorder, unspecified; F17.200 Nicotine dependence, unspecified, uncomplicated; Z88.8 Allergy status to other drugs, medicaments and biological substances; Z95.1 Presence of aortocoronary bypass graft

== ENCOUNTER 2020-05-18 10:54 | Observation (INO) | payer MEDICARE ==
[~2020-05-18] VITALS: Ht 172.7 cm; Wt 104.8 kg
[2020-05-18 11:13] VITALS: BP 148/70
[2020-05-18] MEDS ORDERED: ISOSORBIDE MONO10 MG PO (11:16)
[2020-05-18] MEDS ORDERED: [UNRECOGNIZED DRUG - OTHER] (11:17)
[2020-05-18] MEDS ORDERED: TRAMADOL 50 MG50 MG PO (11:17)
[2020-05-18] MEDS ORDERED: FLOMAX0.4 MG PO (11:17)
[2020-05-18] MEDS ORDERED: EFFIENT10 MG PO (11:17)
[2020-05-18] MEDS ORDERED: VITAMIN B-121000 MC2 SUBLING (11:17)
[2020-05-18 12:00] LABS: ABSOLUTE EOSINOPHILS 0.1 thou/uL (0.0-0.7); ABSOLUTE LYMPHOCYTES 1.2 thou/uL (0.8-5.3); ABSOLUTE MONOCYTES 0.8 thou/uL (0.0-1.2); ABSOLUTE NEUTROPHILS 6.5 thou/uL (1.6-8.1); BASOPHILS 0.2 %; HEMOGLOBIN 14.4 gm/dL (14.0-18.0); LYMPHOCYTES 14.1 %; MCH 31.3 pg (26.0-34.0); MCHC 34.2 g/dL (28.0-37.0); MCV 91.6 fL (80.0-100.0); MONOCYTES 9.6 %; MPV 9.1 fl. (7.2-11.1); NUCLEATED RBCS 0 /100WBC; PLATELET COUNT* 223 thou/uL (150-400); POLYS 75.1 %; RBC 4.59 mil/uL (4.50-6.00); RDW-CV 13.8 % (10.5-14.5); WBC 8.7 thou/uL (4.0-11.0)
[2020-05-18 12:09] LABS: CALCIUM 8.8 mg/dL (8.5-10.1); CREATININE 1.4 mg/dL (0.6-1.3); POTASSIUM 3.9 mmol/L (3.5-5.1)
[2020-05-18 12:19] LABS: ALBUMIN 3.6 g/dL (3.4-5.0); MAGNESIUM 2.3 mg/dL (1.8-2.4); TOTAL BILIRUBIN 0.4 mg/dL (<0.1-1.0); TOTAL PROTEIN 6.7 g/dL (6.4-8.2)
[2020-05-18 17:48] VITALS: BP 125/63
[2020-05-18 18:30] VITALS: BP 155/78
--- NOTE | 2020-05-18 18:35 | NUR ---
PT. ADMITTED FROM ER AROUND 183. VSS, SR ON TELE, STATES PAIN AND DISCOMFORT 01/21 "NOT REAL BAD". SPOKE TO DR. SHEIKH, ORDERS RECEIVED. PT. ORIENTED TO ROOM AND BED CONTROLS. CALL LIGHT AND PERSONAL BELONGINGS PLACED WITHIN REACH. PT. IN CHAIR, HAD SUPPER, IN PLEASANT AFFECT, IN NO APPARENT DISTRESS.
[2020-05-18 19:40] VITALS: BP 143/79
[2020-05-18] MEDS ORDERED: DULCOLAX STOOL100 M1 PO (20:47)
[2020-05-19] VITALS: BP 131/61
[2020-05-19 04:14] VITALS: BP 126/67
--- NOTE | 2020-05-19 07:00 | NUR ---
PT CARE ASSUMED AT 1930. SAT MAINTAINED IN RA. ALERT AND ORIENTED X4. CALL LIGHT WITHIN REACH AND BED IN LOW POSITION. HOURLY ROUNDINGD DONE FOR PT SAFETY.
[2020-05-19 08:00] VITALS: BP 148/81
[2020-05-19 09:30] LABS: CALCIUM 8.9 mg/dL (8.5-10.1); CREATININE 1.4 mg/dL (0.6-1.3); POTASSIUM 4.3 mmol/L (3.5-5.1)
[2020-05-19] MEDS ORDERED: SINGULAIR 10 MG10 MG PO (11:33)
[2020-05-19 11:45] VITALS: BP 148/81
--- NOTE | 2020-05-19 12:44 | NUR ---
PT DC'ED FROM [facility] PRIOR TO P.T. EVALUATION. SILVANA RAE, MPT
--- NOTE | 2020-05-19 15:37 | EKG ---
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1940 Requested By: Ryan Escobar Order Number: [id number] MD: Frank Gutiérrez Measurements Intervals [place] Rate: 63 P: 64 [place]: 226 QRS: 17 QRSD: 108 T: 85 QT: 432 QTc: 443 Interpretive Statements Sinus rhythm Prolonged [place] interval RSR' in V1 or V2, right VCD or RVH Compared to ECG 04/18/2020 06:12:35 IVCD right is noted RSR' in V1 or V2 now present Electronically Signed On 05-19-2020 15:36:56 CDT by Frank Gutiérrez [email or web address] <ELECTRONICALLY SIGNED> By: Frank Gutiérrez MD, [facility] 05/19/20 1536 1110 1110 Frank Gutiérrez MD, [facility] /EPI
== END 2020-05-19 12:15 | disposition home or self-care (01) ==
LOC: M.ERS 10:54 → M.TBA-ER 13:09 → M.2W 17:54
PROVIDERS: Emergency Medicine Emergency Medical Services; ADMIT Internal Medicine; ATTEND Internal Medicine
DX: R07.89 Other chest pain (principal); J98.01 Acute bronchospasm; I25.10 Atherosclerotic heart disease of native coronary artery without angina pectoris; F32.9 Major depressive disorder, single episode, unspecified; Z95.1 Presence of aortocoronary bypass graft; R53.1 Weakness; G89.29 Other chronic pain; R42 Dizziness and giddiness; E78.5 Hyperlipidemia, unspecified; Z87.891 Personal history of nicotine dependence; I12.9 Hypertensive chronic kidney disease with stage 1 through stage 4 chronic kidney disease, or unspecified chronic kidney disease; N18.3 Chronic kidney disease, stage 3 (moderate); J06.9 Acute upper respiratory infection, unspecified

== ENCOUNTER 2020-05-25 10:37 | Emergency (ER) | payer MEDICARE ==
[~2020-05-25] VITALS: Ht 172.7 cm; Wt 104.3 kg
[~2020-05-25 10:37] MED LIST changes: +DULCOLAX STOOL100 M1 PO; +ISOSORBIDE MONO10 MG PO; +SINGULAIR 10 MG10 MG PO; +TRAMADOL 50 MG50 MG PO; +VITAMIN B-121000 MC2 SUBLING; +[UNRECOGNIZED DRUG - OTHER]
[2020-05-25] MEDS ORDERED: CLONAZEPAM 0.50.5 M1 PO (10:51)
[2020-05-25 10:58] LABS: ABSOLUTE EOSINOPHILS 0.1 thou/uL (0.0-0.7); EOSINOPHILS 0.8 %; MCHC 34.6 g/dL (28.0-37.0); NUCLEATED RBCS 0 /100WBC; RBC 4.51 mil/uL (4.50-6.00); RDW-CV 14.1 % (10.5-14.5)
[2020-05-25 11:00] LABS: ABSOLUTE LYMPHOCYTES 1.3 thou/uL (0.8-5.3); ABSOLUTE MONOCYTES 0.8 thou/uL (0.0-1.2); ABSOLUTE NEUTROPHILS 6.7 thou/uL (1.6-8.1); BASOPHILS 0.5 %; HEMATOCRIT 41.3 % (42.0-52.0); HEMOGLOBIN 14.3 gm/dL (14.0-18.0); LYMPHOCYTES 14.5 %; MCH 31.7 pg (26.0-34.0); MCV 91.5 fL (80.0-100.0); MPV 8.7 fl. (7.2-11.1); PLATELET COUNT* 215 thou/uL (150-400); POLYS 75.2 %; WBC 8.9 thou/uL (4.0-11.0)
[2020-05-25 11:09] LABS: CALCIUM 8.8 mg/dL (8.5-10.1); CREATININE 1.4 mg/dL (0.6-1.3); POTASSIUM 3.9 mmol/L (3.5-5.1)
[2020-05-25 11:18] LABS: APTT 25.2 Seconds (25.0-31.3); INR 1.1; PROTIME 10.9 Seconds (9.20-11.50)
[2020-05-25 11:35] LABS: ALBUMIN 3.6 g/dL (3.4-5.0); CK-MB MASS 1.7 ng/mL (<0.5-3.6); TOTAL BILIRUBIN 0.4 mg/dL (<0.1-1.0); TOTAL PROTEIN 6.6 g/dL (6.4-8.2)
[2020-05-25 14:36] VITALS: BP 144/81
--- NOTE | 2020-05-26 10:04 | EKG ---
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1940 Requested By: Kane Miller Order Number: [id number] MD: Luis Vasquez Measurements Intervals [place] Rate: 65 P: 69 [place]: 210 QRS: 37 QRSD: 109 T: 83 QT: 422 QTc: 439 Interpretive Statements Sinus rhythm Abnormal R-wave progression, early transition Compared to ECG 05/18/2020 11:10:18 First degree AV block no longer present Electronically Signed On 05-26-2020 10:04:01 CDT by Luis Vasquez [email or web address] <ELECTRONICALLY SIGNED> By: Luis Vasquez MD, FAC 05/26/20 1004 1042 1042 Luis Vasquez MD, [facility] /EPI
[2020-06-02] MEDS ORDERED: BUSPIRONE HCL5 MG PO (09:59)
[2020-06-02] MEDS ORDERED: VITAMIN D350 MC3 PO (10:00)
[2020-06-02] MEDS ORDERED: VITAMIN C1000 MG PO (10:01)
[2020-06-02] MEDS ORDERED: COENZYME Q10200 M2 PO (10:02)
[2020-06-02] MEDS ORDERED: INDOMETHACIN SR75 M1 PO (10:03)
[2020-06-02] MEDS ORDERED: MAGNESIUM250 M1 PO (10:04)
[2020-06-02] MEDS ORDERED: SINGULAIR 10 MG10 MG PO (10:05)
[2020-06-02] MEDS ORDERED: NITROSTAT0.4 M1 PO (10:07)
[2020-06-02] MEDS ORDERED: FLOMAX0.4 MG PO (10:08)
[2020-06-02] MEDS ORDERED: DYAZIDE 37.5-21 EACH PO (10:09)
== END 2020-05-25 14:37 | disposition home or self-care (01) ==
LOC: M.ERS 10:37
PROVIDERS: Family Medicine
DX: R07.89 Other chest pain (principal); R06.00 Dyspnea, unspecified; I10 Essential (primary) hypertension; I25.10 Atherosclerotic heart disease of native coronary artery without angina pectoris; E78.5 Hyperlipidemia, unspecified; G62.9 Polyneuropathy, unspecified; F32.9 Major depressive disorder, single episode, unspecified; Z96.641 Presence of right artificial hip joint; Z90.49 Acquired absence of other specified parts of digestive tract; Z87.891 Personal history of nicotine dependence; Z88.8 Allergy status to other drugs, medicaments and biological substances

== ENCOUNTER 2020-06-05 09:13 | Observation (INO) | payer MEDICARE ==
[~2020-06-05] VITALS: Ht 172.7 cm; Wt 104.3 kg
--- NOTE | ~2020-06-05 | H ---
[address] [address] HISTORY AND PHYSICAL Name: JARROD DONALD Room: [address] Deloris Freeman#: [id number] Admission: 06/05/20 Attend Phys: Kelby Kuo MD Discharge: 06/06/20 Date of : 36 Report #: [id number] THIS REPORT FOR: //name// cc: Luis Willis MD, David L. MD ~ THIS REPORT FOR: //name// Please refer to the History and Physical performed in the physician's office. By: 1120Medical Records Staff ALEXX /BALDEV
[~2020-06-05 09:13] MED LIST changes: +BUSPIRONE HCL5 MG PO; +COENZYME Q10200 M2 PO; +DYAZIDE 37.5-21 EACH PO; +INDOMETHACIN SR75 M1 PO; +MAGNESIUM250 M1 PO; +NITROSTAT0.4 M1 PO; +VITAMIN C1000 MG PO; +VITAMIN D350 MC3 PO
[2020-06-05 10:59] VITALS: BP 127/72
[2020-06-05 11:04] LABS: HEMATOCRIT 43.3 % (42.0-52.0); HEMOGLOBIN 14.7 gm/dL (14.0-18.0); MCH 31.3 pg (26.0-34.0); MCHC 33.9 g/dL (28.0-37.0); MCV 92.3 fL (80.0-100.0); MPV 9.4 fl. (7.2-11.1); RBC 4.69 mil/uL (4.50-6.00); WBC 9.4 thou/uL (4.0-11.0)
[2020-06-05 11:09] LABS: ANION GAP 8 mmol/L (7-16); BUN 18 mg/dL (7-18); CALCIUM 9.3 mg/dL (8.5-10.1); CHLORIDE 105 mmol/L (98-107); CO2 27 mmol/L (21-32); CREATININE 1.5 mg/dL (0.6-1.3); GLUCOSE 105 mg/dL (70-99); SODIUM 140 mmol/L (136-145)
[2020-06-05 11:13] LABS: APTT 26.1 Seconds (25.0-31.3); PROTIME 10.8 Seconds (9.20-11.50)
[2020-06-05 11:16] LABS: ALBUMIN 3.8 g/dL (3.4-5.0); ALKALINE PHOSPHATASE 68 U/L (46-116); CHOLESTEROL 154 mg/dL (<200); HDL CHOLESTEROL 41 mg/dL (>40); LDL CHOLESTEROL 93 mg/dL (<100); SGOT 16 U/L (15-37); SGPT 23 U/L (30-65); TC:HDL 3.8 Ratio (Not establshd); TOTAL BILIRUBIN 0.4 mg/dL (<0.1-1.0); TOTAL PROTEIN 7.1 g/dL (6.4-8.2); TRIGLYCERIDE 103 mg/dL (<150); VLDL 21 mg/dL (<40)
[2020-06-05 11:17] LABS: SERUM ASSESSMENT Clear
--- NOTE | 2020-06-05 13:25 | EKG ---
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
[2020-06-05 16:00] VITALS: BP 152/63
[2020-06-05 17:06] VITALS: BP 127/72
--- NOTE | 2020-06-05 17:41 | EKG ---
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 : 1940 Requested By: Kelby Kuo Order Number: [id number] Reading MD: Kelby Kuo Measurements Intervals [place] Rate: 65 P: 73 [place]: 273 QRS: 11 QRSD: 111 T: 88 QT: 448 QTc: 466 Interpretive Statements Sinus rhythm Prolonged [place] interval Abnormal R-wave progression, early transition Minimal ST depression ST elevation, consider inferior injury Compared to ECG 06/05/2020 11:45:54 First degree AV block now present ST (T wave) deviation now present Myocardial infarct finding now present Electronically Signed On 06-05-2020 17:40:50 CDT by Kelby Kuo [email or web address] <ELECTRONICALLY SIGNED> By: Kelby Kuo MD, FAC 06/05/20 1740 1629 1629 Kelby Kuo MD, [facility] /EPI
--- NOTE | 2020-06-05 18:48 | NUR ---
PT ARRIVED IN ROOM AT 1600 FROM SCHEDULED CATH R GROIN SITE INTACT NO C/O PAIN OR BRUSUING PT DOES C/O HEAD AND L NECK PAIN, NORCO 10 GIVEN PT STATED IT HELPED BUT HEADACHE IS STILL LINGERING ON BEDREST UNTIL 10PM DISCHARGE TOMORROW
[2020-06-05 19:30] VITALS: BP 147/88
--- NOTE | 2020-06-05 20:00 | NUR ---
RECEIVED REPORT AND ASSUMED CARE OF PT. RT GROIN WITHOUT REDNESS, DRAINAGE OR HEMATOMA. DRSG INTACT. REINFORCED NEED TO KEEP RT LEG STRAIGHT. DENIES SOA, CP OR OTHER DISCOMFORT. TELEMETRY ON SHOWING SR. WILL CONT TO MONITOR AND ASSIST NEEDED.
[2020-06-05 20:40] VITALS: BP 125/71
[2020-06-06] VITALS: BP 137/85
[2020-06-06 04:00] VITALS: BP 133/76
[2020-06-06 04:56] LABS: HEMATOCRIT 40.7 % (42.0-52.0); HEMOGLOBIN 14.1 gm/dL (14.0-18.0); MCH 31.8 pg (26.0-34.0); MCHC 34.8 g/dL (28.0-37.0); MCV 91.5 fL (80.0-100.0); MPV 9.1 fl. (7.2-11.1); RBC 4.44 mil/uL (4.50-6.00); RDW-CV 14.1 % (10.5-14.5)
[2020-06-06 05:15] LABS: ALBUMIN 3.4 g/dL (3.4-5.0); CALCIUM 8.6 mg/dL (8.5-10.1); CREATININE 1.5 mg/dL (0.6-1.3); POTASSIUM 3.7 mmol/L (3.5-5.1); TOTAL BILIRUBIN 0.5 mg/dL (<0.1-1.0); TOTAL PROTEIN 6.5 g/dL (6.4-8.2)
--- NOTE | 2020-06-06 07:04 | NUR ---
SLEPT WELL TONIGHT. RT GROIN REMAINS WITHOUT HEMATOMA, DRAINAGE OR ECCHYMOSIS. TELEMETRY ON SHOWING SR. HS GOALS OF REST AND SAFETY ACHIEVED. HOURLY ROUNDING OBSERVED.
[2020-06-06 08:00] VITALS: BP 108/71; BP 158/92
[2020-06-06 09:45] VITALS: BP 127/72
[2020-06-06 10:26] VITALS: BP 127/72
--- NOTE | 2020-06-06 11:00 | NUR ---
VS CHARTED, A&OX4, SR 1*AVBLOCK ON TELE, ROOM AIR, UP AD MARYANNE, CATH SITE CLEAN DRY INTACT WITH NO HEMATOMA, HOURLY ROUNDING PERFORMED, POSSESSIONS AND CALL LIGHT WITHIN REACH. REC DISCHARGE ORDERS, REVIEWED WITH PATIENT, TELE MONITOR AND IV REMOVED WITHOUT COMPLICATION, PATIENT TAKEN IN WC TO FRONT DOOR BY NURSING STAFF, PICKED UP BY SPOUSE IN FAMILY CAR
--- NOTE | 2020-06-06 13:10 | EKG ---
[place] [address] ELECTROCARDIOGRAM REPORT Name: JARROD DONALD [address] [id number] Admission: 06/05/20 Attend Phys: Kelby Kuo, Discharge: Date of : 36 Date of Service: 06/06/20 0610 Report #: [id number] THIS REPORT FOR: //name// [facility] Test Date: 2020-06-06 Test Time: 06:10:49 Pat Name: JARROD DONALD Department: Room: [facility] Gender: M Kai[place]aere: : 1940 Requested By: Kelby Kuo Order Number: [id number] Reading MD: Frank Gutiérrez Measurements Intervals [place] Rate: 72 P: 67 [place]: 235 QRS: 15 QRSD: 109 T: 92 QT: 420 QTc: 460 Interpretive Statements Sinus rhythm Prolonged [place] interval Probable left atrial enlargement RSR' in V1 or V2, right VCD Nonspecific T abnormalities, lateral leads Compared to ECG 06/05/2020 16:29:05 RSR' in V1 or V2 now present T-wave abnormality now present ST (T wave) deviation still present Electronically Signed On 06-06-2020 13:10:13 CDT by Farnk Gutiérrez [email or web address] <ELECTRONICALLY SIGNED> By: Frank Gutiérrez MD, [facility] 06/06/20 1310 9 Frank Gutiérrez MD, [facility] /EPI
--- NOTE | 2020-06-06 14:43 | CARD ---
[address] [address] CARDIAC CATH REPORT Name: JARROD DONALD Room: [address] M.R.#: [id number] Admission: 06/05/20 Attend Phys: Kelby Kuo MD Discharge: Date of : 36 Report #: [id number] THIS REPORT FOR: //name// cc: Luis Willis MD, David L. MD ~ APPROVED REPORT Study performed: 06/05/2020 13:10:20 Patient Details Patient Status: Out-Patient Room #: The patient is a 80 year-old male Event Personnel Abhishek Valadez RTR Monitor, Lokesh Baldwinub, Kelby Kuo Horizontal Boring Mill Set Up Operator, Leonardo Huitron RN RN, Frank Gutirérez Channel Sales Director Procedures Performed Right femoral arterial access, Left Heart Cath Coronaries, Bypass Grafts LHCCORCABG, JUAN MIGUEL Place w/wo Plasty Single RCA , Hemostasis w/ Angioseal Admission/Lab Medications/Medications given during procedure Lidocaine Subcut 20 ml, Angiomax IV 16 ml, Angiomax IV 36.57 ml per hr, Effient PO 30 mg Procedure Narrative The patient was brought electively to the Cardiac Catheterization Laboratory and was prepped and draped in a sterile manner. The right femoral was infiltrated with 2% Lidocaine subcutaneous anesthesia. A 6F [place] sheath was inserted into the right femoral artery. Coronary angiography was performed using coronary diagnostic catheters. The right coronary system was accessed and visualized with a JR4 6Fr catheter. The left coronary system was accessed and visualized with a JL4 6Fr catheter. Pre-demployment femoral angiogram was performed . Closure device was deployed with a 6 Fr Angioseal STS. The patient tolerated the procedure well and there were no complications associated with the procedure. There was no hematoma. The saphenous vein grafts and KC graft were accessed and visualized with the 6F JR4 catheter. Intraoperative Conscious Sedation [place] [address] CARDIAC CATH REPORT Name: JARROD DONALD Room: [address] MAlo#: [id number] Admission: 06/05/20 Attend Phys: Kelby Kuo MD Discharge: Date of : 38 Report #: [id number] Procedure start time: 13:48. Procedure end time: 15:19. Fluoro Time: 33.7 minutes Dose: DAP [id number] cGycm2 3678.18 mGy Contrast Type and Amount: Visipaque 275 ml Coronary Angiography The patient's coronary anatomy is right dominant. [place] Artery Percent Stenosis Grafts (Complete if Previous CABG=Yes: Percent Stenosis) A KC graft to the first diagonal branch of the LAD A saphenous vein graft to the second obtuse marginal branch is widely patent with good proximal and distal anastomoses. Diagnostic Cath Left Main The left main coronary artery is normal and bifurcates into a left anterior descending and circumflex coronary artery. LAD The left anterior descending coronary artery has a widely patent stent in its proximal to midportion. Very distally there is a 50% narrowing noted. Diagonal 1 A first diagonal branch has a 70% proximal narrowing. Circumflex A small circumflex appears diffusely diseased and gives off a single obtuse marginal branch that is small and diffusely diseased prior to total occlusion. OM1 Small and diffusely diseased. OM2 The second obtuse marginal branch is bifurcated and fills by a saphenous vein graft. Right Coronary The right coronary artery is diffusely moderately plaqued. Distally there is in-stent restenosis of approximately 90%. R PDA The right PDA is mildly plaqued without hemodynamically significant stenoses. RPLV The right posterior lateral LV branch is mildly plaqued without hemodynamically significant stenoses. Left Ventriculography Left Ventriculography was not performed. Hemodynamics The aortic pressure is 134/78 mmHg with a mean of 102 mmHg. PCI Technique Lesion Anticoagulation was achieved with Angiomax. Patient was preloaded with Angiomax IV 16 ml. Percutaneous [place] [address] CARDIAC CATH REPORT Name: JARROD DONALD Room: [address] Deloris M.RVictorino#: [id number] Admission: 06/05/20 Attend Phys: Kelby Kuo MD Discharge: Date of : 38 Report #: [id number] performed on the distal right coronary artery. A 6F La[place] JR4 Guide Catheter was used to engage the Right ostium. A BMW 190cm Interventional Guidewire was used to cross the lesion. BALLOON DILATION A Balloon catheter Euphora SC 2.25x12 was inserted and inflated up to 10.00atm for 9seconds. Additional Inflation: 14.00atm for 9seconds. Additional Inflation: 18.00atm for 10seconds. STENT DEPLOYMENT A drug-eluting stent Edi RX Stent 2.5X15mm was inserted and inflated up to 12.00atm for 10seconds. Additional Inflation: 16.00atm for 9seconds. POST STENT DEPLOYMENT BALLOON DILATION A Balloon catheter [place] Euphora 2.5x12 was inserted and inflated up to 20.00atm for 17seconds. Additional Inflation: 24.00atm for 13seconds. Conclusion 1. Three-vessel coronary artery disease as outlined above. 2. Patent KC graft to a prominent diagonal branch of the LAD 3. Patent saphenous vein graft to the second obtuse marginal branch. 4. In-stent restenosis in the distal right coronary artery as outlined above. 5. Successful PCI with deployment of a drug-eluting stent at site of 90% distal right coronary stenosis with 10% residual narrowing and RONA-3 flow to the distal vessel Recommendations 1. Percutaneous coronary intervention to the in-stent restenosis involving the distal right coronary artery. 2. Aggressive medical management and risk factor modification. Medications Administered Aspirin (any) Prasugrel Diagnostic Cath Approved by: Kelyb Kuo MD Date/Time: 06/06/2020 14:42:53 <ELECTRONICALLY SIGNED> By: Frank Gutiérrez MD, [facility] 06/06/20 1443 1443 1443Frank Gutiérrez MD, FAC /INF
--- NOTE | 2020-06-12 09:21 | D ---
[address] [address] DISCHARGE SUMMARY Name: JRAROD DONALD Room: [address] Deloris Freeman#: [id number] Admission: 06/05/20 Attend Phys: Kelby Kuo MD Discharge: 06/06/20 Date of : 38 Report #: [id number] THIS REPORT FOR: //name// cc: Luis Willis MD, David L. MD ~ THIS REPORT FOR: //name// CC: Luis Kuo DISCHARGE DIAGNOSES: 1. Unstable angina. 2. Coronary artery disease. 3. Hypertension. 4. Hyperlipidemia. PROCEDURES DURING THE HOSPITALIZATION: 1. Coronary angiography. 2. Percutaneous coronary intervention to the distal right coronary artery in an area of in-stent restenosis. HOSPITAL COURSE: The patient was brought to the hospital electively with increased symptoms of dyspnea and chest discomfort consistent with progressive/unstable angina. On angiography, he was found to have greater than 90% in-stent restenosis in the distal right coronary artery. He underwent drug-eluting stent placement with excellent result. The patient's post-procedure course was unremarkable. He is being discharged uneventfully. DISCHARGE MEDICATIONS: Will include diltiazem extended release 120 mg daily, Zetia 10 mg daily, Wellbutrin XL 150 mg daily, Nexium 20 mg daily, folate 400 mcg daily, aspirin 81 mg daily, Imdur 30 mg daily, Effient 10 mg daily, tramadol 50 mg every 6 hours p.r.n., vitamin B12 at 1000 mcg daily, BuSpar 5 mg at bedtime, vitamin D3 at 2000 units daily, vitamin C at 1000 units daily, CoQ10 of 200 mg daily, indomethacin 75 mg b.i.d., magnesium 250 mg daily, Singulair 10 mg daily, Flomax 0.4 mg daily, Maxzide 25 one tablet daily. DISPOSITION: The patient is to follow up with Cardiology nurse practitioner in 4 weeks. <ELECTRONICALLY SIGNED> By: Kelby Kuo MD, FACC 06/12/20920 1 Micfredy Kuo MD, FAC /nt
== END 2020-06-06 11:00 | disposition home or self-care (01) ==
LOC: M.CL 09:13 → M.TBA-CV 14:06 → M.2W 15:58
PROVIDERS: ADMIT Internal Medicine Cardiovascular Disease; ATTEND Internal Medicine Cardiovascular Disease
DX: I25.110 Atherosclerotic heart disease of native coronary artery with unstable angina pectoris (principal); I10 Essential (primary) hypertension; E78.5 Hyperlipidemia, unspecified

== ENCOUNTER 2021-07-16 13:37 | Inpatient (IN) | payer MEDICARE ==
[~2021-07-16] VITALS: Ht 170.2 cm; Wt 104.9 kg
[2021-07-16 13:50] VITALS: BP 106/65
[2021-07-16 14:19] LABS: HEMATOCRIT 45.2 % (42.0-52.0); HEMOGLOBIN 14.9 gm/dL (14.0-18.0); MCH 29.9 pg (26.0-34.0); MCV 90.8 fL (80.0-100.0); MPV 9.1 fl. (7.2-11.1); NUCLEATED RBCS 0 /100WBC; PLATELET COUNT* 221 thou/uL (150-400); RBC 4.97 mil/uL (4.50-6.00); RDW-CV 14.3 % (10.5-14.5); WBC 14.1 thou/uL (4.0-11.0)
[2021-07-16 14:32] LABS: CREATININE 1.4 mg/dL (0.6-1.3); POTASSIUM 3.7 mmol/L (3.5-5.1)
[2021-07-16 14:36] LABS: ALBUMIN 3.7 g/dL (3.4-5.0); TOTAL BILIRUBIN 0.6 mg/dL (<0.1-1.0)
[2021-07-16 15:11] LABS: ABSOLUTE LYMPHOCYTES 0.4 thou/uL (0.8-5.3); ABSOLUTE MONOCYTES 0.7 thou/uL (0.0-1.2); PLATELET ESTIMATE ADEQUATE
[2021-07-16 17:39] VITALS: BP 122/68
[2021-07-16 22:08] VITALS: BP 110/73
--- NOTE | 2021-07-17 06:38 | NUR ---
PT ADMITTED FROM PACU TO ROOM 201 DURING SPRINKLER TENDER; VSS, A+OX4, ROOM AIR, SCDs ON, NG IN PLACE AND CONNECTED TO LIS UPON ARRIVAL. HE IS ABLE TO COMMMUNICATE HIS NEEDS TO STAFF EFFECTIVELY. CURRENT PAIN MEDICATION REGIMEN HAS BEEN ADEQUATE FOR CONTROLLING HIS PAIN UP TO THIS 0600 TODAY. HE HAS BEEN NPO SINCE ARRIVAL ON . AT APPROXIMATELY 0600 PT WAS TAKEN BACK TO SURGERY FOR ANOTHER PROCEDURE THIS MORNING.
[2021-07-17 07:30] VITALS: BP 115/69
[2021-07-17 08:51] LABS: HEMATOCRIT 42.9 % (42.0-52.0); HEMOGLOBIN 14.4 gm/dL (14.0-18.0); MCH 30.6 pg (26.0-34.0); MCHC 33.6 g/dL (28.0-37.0); MCV 91.1 fL (80.0-100.0); MPV 9.8 fl. (7.2-11.1); RBC 4.71 mil/uL (4.50-6.00); RDW-CV 14.3 % (10.5-14.5); WBC 18.6 thou/uL (4.0-11.0)
--- NOTE | 2021-07-17 09:17 | EKG ---
[place] [address] ELECTROCARDIOGRAM REPORT Name: JARROD DONALD Room: [address] ADM IN .R.#: [id number] Admission: 07/16/21 Attend Phys: Gorge Davidson Discharge: Date of : 36 Date of Service: 07/16/21 1417 Report #: [id number] THIS REPORT FOR: //name// [facility] ED Test Date: 2021-07-16 Test Time: 14:17:52 Pat Name: JARROD DONALD Department: Room: [facility] Gender: M Conference Planner: ERICA : 1940 Requested By: Ryan Escobar Order Number: [id number] MD: Luis Vasquez Measurements Intervals [place] Rate: 46 P: 97 FL: 290 QRS: 25 QRSD: 122 T: 118 QT: 490 QTc: 429 Interpretive Statements Sinus bradycardia Prolonged [place] interval Nonspecific intraventricular conduction delay Abnormal T, consider ischemia, lateral leads Baseline wander in lead(s) I,III,aVL,V2 Compared to ECG 06/06/2020 06:10:49 Sinus rhythm no longer present T-wave abnormality still present Electronically Signed On 07-17-2021 9:17:44 CDT by Luis Vasquez [email or web address] <ELECTRONICALLY SIGNED> By: Luis Vasquez MD, [facility] 07/17/21916 16 16 Luis Vasquez MD, [facility] /EPI
[2021-07-17 09:26] LABS: CALCIUM 8.8 mg/dL (8.5-10.1); CREATININE 1.3 mg/dL (0.6-1.3); POTASSIUM 3.8 mmol/L (3.5-5.1)
[2021-07-17 12:00] VITALS: BP 104/63
--- NOTE | 2021-07-17 13:08 | NUR ---
Pt is A&O. Resides at home, currently son and DIL live with him. Pt is independent. No DME. No hx of HH or SNF. Hx of cardiac rehab and outpt therapy. DC NG tube today, start clears. Anticipate dc later today, no needs.
[2021-07-17 13:17] VITALS: BP 104/63
[2021-07-17] MEDS ORDERED: HYDROCODON-ACE1 EAC7 PO ×2 (14:59)
--- NOTE | 2021-07-17 15:41 | NUR ---
PT GIVEN DISCHARGE INFORMATION, CARE NOTES, AND PRESCRIPTIONS. IV REMOVED. HEART MONITOR REMOVED. PT LEFT VIA WHEELCHAIR TO HOME. HOURLY ROUNDING COMPLETED.
--- NOTE | 2021-07-21 07:06 | OP ---
[facility] [address] [place] [address] OPERATIVE REPORT Name: JARROD DONALD Room: [address] IN M.R.#: [id number] Admission: 07/16/21 Attend Phys: Case Madera Discharge: 07/17/21 Date of : 38 Report #: [id number] THIS REPORT FOR: cc: Sonali Cabrera MD, Lin W. MD Patterson, Jonathan D. MD ~ DATE OF SURGERY: 07/16/2021 PREOPERATIVE DIAGNOSIS: Small-bowel obstruction. POSTOPERATIVE DIAGNOSIS: Small-bowel obstruction. OPERATION: 1. Diagnostic laparoscopy. 2. Exploratory laparotomy. SURGEON: Casper Fritz MD ANESTHESIA: General. ESTIMATED BLOOD LOSS: Minimal. SPECIMENS: None. DESCRIPTION OF PROCEDURE: After informed consent was obtained, the patient was brought to the operating room and placed supine. SCDs were placed and working, preoperative antibiotics were administered, general anesthesia was induced. The abdomen was prepped and draped in the usual sterile fashion. A 5 mm incision was made in the left upper quadrant. A 5 mm scope was placed under direct vision. Pneumoperitoneum was established. Left-sided 5 mm trocars were placed. I examined the small bowel. I ran it proximally and distally and was not able to find a cause for the obstruction. I examined the appendix and it was normal. I therefore elected to perform a laparotomy to make sure there was nothing I was missing in the laparoscopy. Incision was made in the epigastrium measuring approximately 10 cm. Fascia was incised. I ran the small bowel proximally and distally. The stomach appeared normal. The liver appeared normal. All the small bowel appeared normal. However, it was fairly dilated. He may have had an internal hernia that resolved itself or he may have just had an ileus. I examined the small bowel from the cecum to the ligament of Treitz. Again, there were no masses. There were no internal hernias. The small bowel was then placed back into the abdomen. The colon appeared normal. The fascia was then closed with a running #1 looped PDS. Skin was closed with 4-0 Monocryl. Incisions were dressed with Steri[place] [address] OPERATIVE REPORT Name: JARROD DONALD Room: [address]#: [id number] Admission: 07/16/21 Attend Phys: Case Madera Discharge: 07/17/21 Date of : 38 Report #: [id number] COMPLICATIONS: None. DISPOSITION: The patient was taken to recovery in satisfactory condition. <ELECTRONICALLY SIGNED> By: Casper Fritz MD 07/21/21 0706 1858 1913Joverónica Fritz MD /nt
== END 2021-07-17 15:36 | disposition home or self-care (01) | DRG 356 ==
LOC: M.ERS 13:37 → M.TBA-ER 15:57 → M.2W 15:57
PROVIDERS: Emergency Medicine Emergency Medical Services; Family Medicine; ADMIT Internal Medicine; ATTEND Internal Medicine
PROC: 0WJF4ZZ Inspection of Abdominal Wall, Percutaneous Endoscopic Approach (ICD-10-PCS; principal; 2021-07-16)
PROC: 0DJD0ZZ Inspection of Lower Intestinal Tract, Open Approach (ICD-10-PCS; principal; 2021-07-16)
DX: K46.0 Unspecified abdominal hernia with obstruction, without gangrene (principal); N17.0 Acute kidney failure with tubular necrosis; K56.7 Ileus, unspecified; N40.0 Benign prostatic hyperplasia without lower urinary tract symptoms; I10 Essential (primary) hypertension; E78.5 Hyperlipidemia, unspecified; I25.10 Atherosclerotic heart disease of native coronary artery without angina pectoris; G62.9 Polyneuropathy, unspecified; E66.9 Obesity, unspecified; F32.9 Major depressive disorder, single episode, unspecified; Z96.641 Presence of right artificial hip joint; Z20.822 Contact with and (suspected) exposure to COVID-19; Z95.5 Presence of coronary angioplasty implant and graft; Z79.82 Long term (current) use of aspirin; Z79.899 Other long term (current) drug therapy; Z68.36 Body mass index [BMI] 36.0-36.9, adult

== ENCOUNTER 2021-07-18 12:19 | Inpatient (IN) | payer MEDICARE ==
[~2021-07-18] VITALS: Ht 172.7 cm; Wt 104.3 kg
[~2021-07-18 12:19] MED LIST changes: +HYDROCODON-ACE1 EAC7 PO
[2021-07-18 12:35] VITALS: BP 154/78
[2021-07-18 12:51] LABS: ABSOLUTE EOSINOPHILS 0.1 thou/uL (0.0-0.7); ABSOLUTE MONOCYTES 1.8 thou/uL (0.0-1.2); ABSOLUTE NEUTROPHILS 10.7 thou/uL (1.6-8.1); BASOPHILS 0.1 %; EOSINOPHILS 0.4 %; HEMATOCRIT 44.1 % (42.0-52.0); HEMOGLOBIN 14.5 gm/dL (14.0-18.0); LYMPHOCYTES 7.7 %; MCH 29.9 pg (26.0-34.0); MCHC 32.9 g/dL (28.0-37.0); MCV 90.9 fL (80.0-100.0); MONOCYTES 13.3 %; MPV 8.8 fl. (7.2-11.1); NUCLEATED RBCS 0 /100WBC; PLATELET COUNT* 202 thou/uL (150-400); POLYS 78.5 %; RBC 4.85 mil/uL (4.50-6.00); RDW-CV 14.2 % (10.5-14.5); WBC 13.6 thou/uL (4.0-11.0)
[2021-07-18 13:00] LABS: CALCIUM 8.9 mg/dL (8.5-10.1); CREATININE 1.3 mg/dL (0.6-1.3); POTASSIUM 3.4 mmol/L (3.5-5.1)
[2021-07-18 13:25] LABS: ALBUMIN 3.3 g/dL (3.4-5.0); CK-MB MASS 9.8 ng/mL (<0.5-3.6); TOTAL BILIRUBIN 0.5 mg/dL (<0.1-1.0); TOTAL PROTEIN 6.8 g/dL (6.4-8.2)
[2021-07-18 13:42] LABS: URINE BILIRUBIN NEGATIVE (Negative); URINE BLOOD TRACE (Negative); URINE CLARITY CLEAR; URINE COLOR YELLOW; URINE GLUCOSE-RANDOM NEGATIVE (Negative); URINE KETONES TRACE (Negative); URINE LEUKOCYTES-REFLEX NEGATIVE (Negative); URINE NITRITE-REFLEX NEGATIVE (Negative); URINE PROTEIN NEGATIVE (Negative); URINE UROBILINOGEN 0.2 E.U./dl (0.2-1.0)
--- NOTE | 2021-07-18 14:28 | EKG ---
[place] [address] ELECTROCARDIOGRAM REPORT Name: JARROD DONALD Room: [place] [address] ADM IN .R.#: [id number] Admission: 07/18/21 Attend Phys: Garth Quigley, Discharge: Date of : 38 Date of Service: 07/18/21 1235 Report #: [id number] THIS REPORT FOR: //name// [facility] ED Test Date: 2021-07-18 Test Time: 12:35:30 Pat Name: JARROD DONALD Department: Room: [facility] Gender: M Collector Of Port: YANIQUE : 1940 Requested By: Kane Miller Order Number: [id number] MD: Kelby Kuo Measurements Intervals [place] Rate: 61 P: 79 [place]: 236 QRS: 0 QRSD: 166 T: 12 QT: 451 QTc: 455 Interpretive Statements Sinus rhythm Prolonged [place] interval Probable left atrial enlargement Right bundle branch block Abnormal inferior Q waves Compared to ECG 07/16/2021 14:17:52 Right bundle-branch block now present Sinus bradycardia no longer present Electronically Signed On 07-18-2021 14:28:30 CDT by Kelby Kuo [email or web address] <ELECTRONICALLY SIGNED> By: Kelby Kuo MD, FAC 07/18/21 1428 1235 1235 Kelby Kuo MD, [facility] /EPI
[2021-07-18 16:05] VITALS: BP 109/61
[2021-07-18 17:00] VITALS: BP 130/61
--- NOTE | 2021-07-18 18:43 | NUR ---
PT TRANSFERRED TO UNIT AT APPROX 1600. PT IS A&OX4 AND REPORTS HE WAS FEELING A LIITLE FOGGY BUT NOT MUCH THIS AM. PT IS ACCOMPANIED BY HIS SON. PT ADMITTED WITH CRITICAL TROPONIN. PT DENIES ANY PAIN OR DISCOMFORT. PER CARDIOLOGY PT ABLE TO EAT DINNER AND BE NPO AFTER MIDNIGHT. CARDIOLOGY TO SEE PT IN AM. SAFETY MEASURES IN PLACE, VSS. PT VISITING WITH FRIEND AT BEDSIDE. PT HAS A CAMPBELL DRAINING LIGHT YELLOW URINE. UP TO BSC WITH ASSIST X1.
[2021-07-18 20:44] VITALS: BP 109/64
[2021-07-18 21:00] LABS: APTT 27.1 Seconds (25.0-31.3); INR 1.1; PROTIME 11.2 Seconds (9.20-11.50)
[2021-07-19] VITALS: BP 137/73
[2021-07-19 03:53] LABS: ABSOLUTE EOSINOPHILS 0.1 thou/uL (0.0-0.7); ABSOLUTE LYMPHOCYTES 1.1 thou/uL (0.8-5.3); ABSOLUTE MONOCYTES 1.6 thou/uL (0.0-1.2); ABSOLUTE NEUTROPHILS 7.1 thou/uL (1.6-8.1); BASOPHILS 0.2 %; EOSINOPHILS 1.4 %; HEMATOCRIT 38.3 % (42.0-52.0); HEMOGLOBIN 12.7 gm/dL (14.0-18.0); LYMPHOCYTES 10.7 %; MCH 30.3 pg (26.0-34.0); MCHC 33.1 g/dL (28.0-37.0); MCV 91.5 fL (80.0-100.0); MONOCYTES 15.8 %; MPV 8.9 fl. (7.2-11.1); NUCLEATED RBCS 0 /100WBC; PLATELET COUNT* 184 thou/uL (150-400); POLYS 71.9 %; RBC 4.18 mil/uL (4.50-6.00); RDW-CV 14.2 % (10.5-14.5); WBC 9.8 thou/uL (4.0-11.0)
[2021-07-19 04:00] VITALS: BP 131/63
[2021-07-19 04:36] LABS: CALCIUM 8.5 mg/dL (8.5-10.1); CREATININE 1.1 mg/dL (0.6-1.3); POTASSIUM 3.4 mmol/L (3.5-5.1)
--- NOTE | 2021-07-19 07:45 | NUR ---
PT IS ABLE TO COMMUNICATE HIS NEEDS TO STAFF EFFECTIVELY. CURRENT PAIN MEDICATION REGIMEN HAS GABRIEL ADEQUATE FOR CONTROLLING HIS PAIN UP TO 0700 THIS MORNING. HE HAS BEEN NPO SINCE MIDNIGHT FOR A CARDIOLOGY CONSULT TODAY. HEPARIN GTT MAINTAINED PER ORDERED PROTOCOL.
[2021-07-19 08:52] VITALS: BP 150/85
--- NOTE | 2021-07-19 15:46 | NUR ---
ASSUMED PT CARE AT 0730. PT IS PLEASANTLY A&OX4. ASSESSMENT COMPLETED, PT VOICES NO CONCERN ONLY TO KNOW THE PLAN FOR CARDIOLOGY FOLLOW UP. AGRICULTURAL CHEMIST MET WITH PT TO DISCUSS PLAN. MEDICATIONS ADMINISTERED ORDERED. PT UP TO CHAIR WITH MINIMAL ASSIST. CAMPBELL DC'D. NEW ORDER TO START LYRICA WHICH WAS ADMINISTERED ORDERED. NEW ORDER TO DISCHARGE PT TO HOME. PT VERBALIZED UNDERSTANDING. HEART MONITOR REMOVED AND IV DC'D. SON HERE AT 1545 TO TRANSPORT PT TO HOME. ALL BELONGINGS WITH PT.
[2021-07-19 16:26] VITALS: BP 150/85
--- NOTE | 2021-07-20 08:56 | CON ---
[address] [address] CONSULTATION Name: JARROD DONALD Room: [address] IN M.R.#: [id number] Admission: 07/18/21 Attend Phys: Garth Quigley MD Discharge: 07/19/21 Date of : 38 Report #: [id number] THIS REPORT FOR: cc: Sonali Cabrera MD, Lin W. MD Liston, Michael J. MD [facility] ~ cc: Sonali Cabrera MD DATE OF CONSULTATION: 07/19/2021 CARDIOLOGY CONSULT INDICATION: Elevated troponin. HISTORY OF PRESENT ILLNESS: The patient is a very pleasant 81-year-old gentleman who is well known to myself. He has a history of coronary artery bypass grafting remotely and more recently percutaneous coronary intervention. He was admitted to the hospital last week with abdominal discomfort. He was felt to have a bowel obstruction. Exploratory laparotomy was fairly unremarkable. The patient was discharged to home for recovery. He returned to the hospital with continued abdominal pain and a feeling of anxiety and discomfort. He denied any chest pain or shortness of breath. In this setting, he was found to have an elevated troponin. EKG shows sinus bradycardia with no significant ST or T-wave abnormalities. At present, his abdominal discomfort is improved. He tolerated diet yesterday. He is not having any chest pain or shortness of breath. PAST MEDICAL HISTORY: 1. Coronary artery disease with coronary artery bypass grafting in 2005. 2. Hyperlipidemia. 3. Hypertension. 4. Recent laparoscopic surgery. 5. Peripheral neuropathy. PAST SURGICAL HISTORY: 1. Coronary artery bypass grafting in 2005. 2. Hemorrhoidectomy. 3. Nasal fracture surgery. 4. Septoplasty. 5. Tonsillectomy. 6. Total hip arthroplasty. HOME MEDICATIONS: Aspirin 81 mg daily, Wellbutrin-XL 150 mg daily, vitamin D 2000 units daily, diltiazem 120 mg daily, Nexium 20 mg daily, Zetia 10 mg daily, hydrocodone/acetaminophen 5/25 one q. 4 hours p.r.n., isosorbide mononitrate [address] [place] [address] CONSULTATION Name: JARROD DONALD Room: [address]#: [id number] Admission: 07/18/21 Attend Phys: Garth Quigley MD Discharge: 07/19/21 Date of : 38 Report #: [id number] mg daily, Flomax 0.4 mg daily, Maxzide 25 one tablet daily, CoQ10 200 mg daily. ALLERGIES AND INTOLERANCES: STATINS. FAMILY HISTORY: The patient's mother at 92 with heart failure. The patient's father at age 65 with heart failure. SOCIAL HISTORY: The patient quit smoking in 1966. He does not drink alcohol. PHYSICAL EXAMINATION: VITAL SIGNS: Blood pressure 150/85, pulse 57 and regular. GENERAL: This is a pleasant gentleman who does not appear to be in any distress. Mood and affect appropriate. HEENT: The patient is wearing glasses. Extraocular muscles intact. Mucous membranes are moist. NECK: Shows no jugular venous distention. No carotid bruits. CHEST: Reveals clear lung araya without wheezes or rales. CARDIAC: Reveals a regular rhythm with grade 1/6 systolic murmur heard at the apex. ABDOMEN: Reveals normal bowel sounds. EXTREMITIES: Shows no edema. SKIN: Dry. DIAGNOSTIC DATA: A 12-lead EKG shows sinus bradycardia with nonspecific T-wave flattening. No ST-segment abnormalities noted. LABORATORY DATA: Reviewed. Initial troponin was 1083. Subsequent troponin 799. Chest x-ray was unremarkable. IMPRESSION AND RECOMMENDATIONS: 1. Elevated troponin. The patient is not having any symptoms to suggest acute coronary syndrome. EKG is unremarkable. Likely secondary to cardiac strain, we would not proceed with any invasive evaluation at this time. Cardiac diet started. Continue home medications as outlined above. Further followup will be as an outpatient. 2. Hypertension. Continue patient's home medications. 3. Dyslipidemia. The patient is STATIN INTOLERANT. Continue Zetia. 4. Recent bowel obstruction, status post laparotomy. The patient is recovering in fairly usual fashion. [place] [address] CONSULTATION Name: SHABANAJARROD Dixon Room: [address] IN M.R.#: [id number] Admission: 07/18/21 Attend Phys: Garth Quigley MD Discharge: 07/19/21 Date of : 38 Report #: [id number] The patient appears stable from a cardiac standpoint. We will continue further workup as an outpatient. <ELECTRONICALLY SIGNED> By: Kelby Kuo MD, FACC 07/20/21 0856 1109 [facility] Pretty Kuo MD, FACC /nt
== END 2021-07-19 16:30 | disposition home or self-care (01) | DRG 280 ==
LOC: M.ERS 12:19 → M.2W 13:23 → M.TBA-ER 13:23 → M.2W 15:53
PROVIDERS: Family Medicine; ADMIT Internal Medicine; ATTEND Internal Medicine
DX: I21.4 Non-ST elevation (NSTEMI) myocardial infarction (principal); G93.41 Metabolic encephalopathy; K56.609 Unspecified intestinal obstruction, unspecified as to partial versus complete obstruction; R65.10 Systemic inflammatory response syndrome (SIRS) of non-infectious origin without acute organ dysfunction; Z96.641 Presence of right artificial hip joint; I25.10 Atherosclerotic heart disease of native coronary artery without angina pectoris; I10 Essential (primary) hypertension; E78.5 Hyperlipidemia, unspecified; F39 Unspecified mood [affective] disorder; G62.9 Polyneuropathy, unspecified; E86.0 Dehydration; Z20.822 Contact with and (suspected) exposure to COVID-19; Z95.1 Presence of aortocoronary bypass graft; Z95.5 Presence of coronary angioplasty implant and graft; Z88.8 Allergy status to other drugs, medicaments and biological substances; Z87.891 Personal history of nicotine dependence; Z79.82 Long term (current) use of aspirin; Z79.899 Other long term (current) drug therapy

== ENCOUNTER 2021-07-21 13:28 | Inpatient (IN) | payer MEDICARE ==
[~2021-07-21] VITALS: Ht 172.7 cm; Wt 104.3 kg
[2021-07-21 13:42] VITALS: BP 129/72
[2021-07-21 14:00] LABS: ABSOLUTE EOSINOPHILS 0.2 thou/uL (0.0-0.7); ABSOLUTE MONOCYTES 1.4 thou/uL (0.0-1.2); ABSOLUTE NEUTROPHILS 8.2 thou/uL (1.6-8.1); BASOPHILS 0.2 %; EOSINOPHILS 1.8 %; HEMATOCRIT 41.6 % (42.0-52.0); HEMOGLOBIN 14.5 gm/dL (14.0-18.0); MCH 31.1 pg (26.0-34.0); MCHC 34.7 g/dL (28.0-37.0); MCV 89.5 fL (80.0-100.0); MONOCYTES 13.1 %; MPV 8.4 fl. (7.2-11.1); NUCLEATED RBCS 0 /100WBC; POLYS 75.9 %; RBC 4.65 mil/uL (4.50-6.00); RDW-CV 13.8 % (10.5-14.5); WBC 10.8 thou/uL (4.0-11.0)
[2021-07-21 14:05] LABS: PLATELET COUNT* 261 thou/uL (150-400)
[2021-07-21 14:20] LABS: CALCIUM 8.9 mg/dL (8.5-10.1); CREATININE 1.2 mg/dL (0.6-1.3); POTASSIUM 3.2 mmol/L (3.5-5.1)
[2021-07-21 14:24] LABS: ALBUMIN 3.1 g/dL (3.4-5.0); TOTAL BILIRUBIN 0.6 mg/dL (<0.1-1.0); TOTAL PROTEIN 6.7 g/dL (6.4-8.2)
[2021-07-21 16:09] LABS: URINE BILIRUBIN NEGATIVE (Negative); URINE BLOOD NEGATIVE (Negative); URINE CLARITY CLEAR; URINE COLOR YELLOW; URINE GLUCOSE-RANDOM NEGATIVE (Negative); URINE KETONES NEGATIVE (Negative); URINE LEUKOCYTES-REFLEX NEGATIVE (Negative); URINE NITRITE-REFLEX NEGATIVE (Negative); URINE PROTEIN NEGATIVE (Negative); URINE SPECIFIC GRAVITY <= 1.005 (1.005-1.030); URINE UROBILINOGEN 0.2 E.U./dl (0.2-1.0)
--- NOTE | 2021-07-21 17:39 | NUR ---
PT HAD APPROX. 200 MLS EMESIS WHEN NG TUBE WAS PUT DOWN RIGHT NARE. PT TUBING TO LOW INTERMIN. SUCTION.
--- NOTE | 2021-07-21 17:52 | EKG ---
[place] [address] ELECTROCARDIOGRAM REPORT Name: JARROD DONALD Room: [place] [address] ADM IN .R.#: [id number] Admission: 07/21/21 Attend Phys: Gorge Davidson Discharge: Date of : 36 Date of Service: 07/21/21 1345 Report #: [id number] THIS REPORT FOR: //name// [facility] ED Test Date: 2021-07-21 Test Time: 13:45:05 Pat Name: JARROD DONALD Department: Room: [facility] Gender: M Balance Wheel Hand Filer: EBONI : 1940 Requested By: Kane Miller Order Number: [id number] MD: Kelby Kuo Measurements Intervals [place] Rate: 73 P: 82 [place]: 219 QRS: 137 QRSD: 164 T: 6 QT: 447 QTc: 493 Interpretive Statements Sinus rhythm with first-degree AV block Probable left atrial enlargement Right bundle branch block Inferior infarct, old Baseline wander in lead(s) II,III,aVL,aVF Compared to ECG 07/18/2021 12:35:30 No significant changes noted Electronically Signed On 07-21-2021 17:52:23 CDT by Kelby Kuo [email or web address] <ELECTRONICALLY SIGNED> By: Kelby Kuo MD, [facility] 07/21/21 1752 1345 1345 Kelby Kuo MD, [facility] /EPI
[2021-07-21 20:22] VITALS: BP 126/82
[2021-07-22] VITALS (7 sets, daily range): BP systolic 111–166; BP diastolic 73–84
--- NOTE | 2021-07-22 11:23 | NUR ---
The patient is alert. Able to make needs known. SR on the monitor. NG with suctions. Call light within reach. IV fluids infusing.
--- NOTE | 2021-07-22 11:51 | NUR ---
Pt known to this CM from previous hospital stay, Pt recently dc on 07/17 to home. Pt is A&O. Resides at home with son and DIL. Independent. No DME. No hx of HH or SNF. Pt readmitted for SBO. Anticipate dc in a few days.
--- NOTE | 2021-07-22 16:24 | NUR ---
The patient was bladder scanned 590ml results. 16 fr sharma placed 600 ml dark slime urined returned.
[2021-07-23 00:15] VITALS: BP 155/70
--- NOTE | 2021-07-23 01:07 | NUR ---
ASSUMED CARE OF PT AT 1900. PT IS ALERT AND ORIENTED. VSS. PERRLA. NO COMPLAINTS OF PAIN. PT HAS NG TUBE TO LIS. PT DID HAVE A BOWEL MOVEMENT THIS SHIFT. PT IS IN SINUS ARRYTHMIA ON THE TELEMETRY. PT IS RESTING COMFORTABY IN BED. RESPIRATIONS ARE EVEN AND NONLABORED. WILL CONTINUE TO MONITOR PT.
[2021-07-23 04:00] VITALS: BP 173/79
[2021-07-23 05:02] LABS: HEMATOCRIT 39.9 % (42.0-52.0); HEMOGLOBIN 13.5 gm/dL (14.0-18.0); MCH 30.4 pg (26.0-34.0); MCHC 33.7 g/dL (28.0-37.0); MCV 90.2 fL (80.0-100.0); MPV 8.6 fl. (7.2-11.1); RBC 4.42 mil/uL (4.50-6.00); RDW-CV 14.1 % (10.5-14.5); WBC 11.6 thou/uL (4.0-11.0)
[2021-07-23 05:31] LABS: ALBUMIN 2.6 g/dL (3.4-5.0); CALCIUM 8.3 mg/dL (8.5-10.1); CREATININE 1.1 mg/dL (0.6-1.3); POTASSIUM 3.4 mmol/L (3.5-5.1); TOTAL BILIRUBIN 0.5 mg/dL (<0.1-1.0); TOTAL PROTEIN 5.9 g/dL (6.4-8.2)
[2021-07-23 12:00] VITALS: BP 135/65
[2021-07-23] MEDS ORDERED: MIRALAX17 GM PO (14:11)
--- NOTE | 2021-07-23 14:30 | NUR ---
Pt discharging to home today with a no needs LOC
[2021-07-23 14:34] VITALS: BP 135/65
== END 2021-07-23 16:00 | disposition home or self-care (01) | DRG 390 ==
LOC: M.ERS 13:28 → M.TBA-ER 16:22 → M.2W 16:22
PROVIDERS: Family Medicine; Internal Medicine; ADMIT Internal Medicine; ATTEND Internal Medicine
DX: K56.609 Unspecified intestinal obstruction, unspecified as to partial versus complete obstruction (principal); Z96.641 Presence of right artificial hip joint; I25.10 Atherosclerotic heart disease of native coronary artery without angina pectoris; I10 Essential (primary) hypertension; F32.9 Major depressive disorder, single episode, unspecified; E78.5 Hyperlipidemia, unspecified; G62.9 Polyneuropathy, unspecified; Z20.822 Contact with and (suspected) exposure to COVID-19; K56.7 Ileus, unspecified; R33.9 Retention of urine, unspecified; Z95.1 Presence of aortocoronary bypass graft; Z95.5 Presence of coronary angioplasty implant and graft; Z87.891 Personal history of nicotine dependence; Z88.8 Allergy status to other drugs, medicaments and biological substances